=== PATIENT | male | born 1945 | race Hispanic/Latino ===

== ENCOUNTER 2018-11-07 06:39 | Inpatient (IN) ==
[2018-11-01 15:43] LABS: HEMATOCRIT 37.2 % (42.0-52.0); HEMOGLOBIN 11.8 g/dL (14.0-18.0); MCH 29.1 PG (27-31); MCHC 31.7 g/dL (33-37); MCV 91.9 FL (81-99); MPV 10.4 FL (7.4-10.4); RBC 4.05 XMIL (4.7-6.1); RDW 13.1 % (11.5-14.5); WBC 5.58 X1000 (4.8-10.8)
[2018-11-01 15:46] LABS: CALCIUM 9.1 mg/dL (8.8-10.2); CREATININE 1.3 mg/dL (0.7-1.2); POTASSIUM 3.9 mmol/L (3.5-5.1)
[2018-11-07] MEDS ORDERED: LR 1,000 ML ONE (07:06)
[2018-11-07] MEDS ORDERED: KEFZOL 1 GM/D5W 1 GM/50 ML IVPB ONE (07:06)
[2018-11-07] MEDS ORDERED: DIPRIVAN 1% ONE (07:23)
[2018-11-07] MEDS ORDERED: XYLOCAINE-MPF 2% ONE (07:24)
[2018-11-07] MEDS ORDERED: LOPRESSOR ONE (07:27)
[2018-11-07] MEDS ORDERED: FENTANYL ONE (08:49)
[2018-11-07] MEDS ORDERED: NEO-SYNEPHRINE ONE (09:10)
[2018-11-07] MEDS ORDERED: SODIUM CHLORIDE 0.9% 10 ML ONE (09:10)
[2018-11-07] MEDS ORDERED: NS 1,000 ML ONE (09:52)
[2018-11-07] MEDS: DILAUDID ONE ×5 (09:52→10:25)
--- NOTE | 2018-11-07 10:01 | OPERATIVE NOTE ---
PROCEDURE DATE: 11/07/2018 PROCEDURE PERFORMED: Right below-knee amputation. SURGEON: Dr. Cem Mercedes. MAGAZINE SUPERVISOR: ASHA Silva. PREOPERATIVE DIAGNOSIS: Ischemic gangrene of the right foot. POSTOPERATIVE DIAGNOSIS: Ischemic gangrene of the right foot. DESCRIPTION OF PROCEDURE: After satisfactory general anesthesia was achieved, the right leg was prepped and draped in a sterile fashion. The foot was excluded. We made a curvilinear susie anteriorly 4 fingerbreadths below the tibial tubercle. We then measured 15 cm below that and made a transverse susie inferiorly. So, we made a long posterior flap susie. We then incised the skin in the area that was marked for the circumference of the excision. We achieved satisfactory hemostasis with electrocautery. There was much edema fluid in the subcutaneous tissue. We dissected through the anterior muscle group with the electrocautery down to the tibial vessels. We clamped and divided them and suture ligated them with 2-0 silk suture ligatures. The vein graft was occluded. We passed a Alisa behind the tibia. Passed a Gigli saw and transected the tibia tapering it anteriorly. We then went a centimeter above that on the fibula and transected it. We put a hook into the tibia, used a guillotine knife to slide behind both bones down to the distal end of our posterior dissection and then transected muscle there. We handed off the lower leg and foot. We clamped off the bleeding vessels, suture ligated them with 3-0 Polysorb suture ligatures. We ligated the tibial nerve proximally and transected it. We then filed the end of the tibia with a file to smooth it. We then copiously irrigated the muscle flap. Hemostasis was satisfactory. We then folded the muscle flap forward and approximated the muscle groups with 0 Polysorb stitches. Subcutaneous tissue was then reapproximated with 3-0 Polysorb stitches and the skin was approximated with milagros. Xeroform, sterile 4 x 4s, and sterile Kerlix was applied and then a 6-inch OCL splint was placed to keep the knee straight and then this was wrapped with 6- inch Keaton. He tolerated it well. Estimated blood loss was about 200 mL. He was sent to the recovery room in satisfactory condition. cc: Cem Mercedes MD
[2018-11-07] MEDS: APRESOLINE ONE ×2 (10:40→11:10)
[2018-11-07] MEDS: NS 1,000 ML IV SCH (13:15)
[2018-11-07] MEDS: ZOFRAN IV PRN (13:49)
[2018-11-07] MEDS: NORCO-10 PO PRN ×2 (15:31→21:00)
[2018-11-07] MEDS: NEURONTIN PO SCH (20:59)
[2018-11-07] MEDS: LOPRESSOR PO SCH (21:00)
[2018-11-07] MEDS: LIPITOR PO SCH (21:00)
[2018-11-08] MEDS: ZOFRAN IV PRN (02:15)
[2018-11-08] MEDS: DILAUDID IV PRN ×2 (02:15→21:48)
[2018-11-08] MEDS: NORCO-10 PO PRN ×3 (03:18→18:40)
[2018-11-08 06:18] LABS: BASO# 0.02 X1000 (0.0-0.2); BASO% 0.3 % (0.0-0.8); EOS# 0.07 X1000 (0.0-0.7); HEMATOCRIT 31.8 % (42.0-52.0); HEMOGLOBIN 9.9 g/dL (14.0-18.0); LYMPH# 1.22 X1000 (1.2-3.4); LYMPH% 17.7 % (20.5-51.1); MCHC 31.1 g/dL (33-37); MCV 93.3 FL (81-99); MONO# 0.58 X1000 (0.11-0.59); MONO% 8.4 % (1.7-9.3); MPV 10.9 FL (7.4-10.4); NEUT# 5.01 X1000 (1.4-6.5); NEUT% 72.6 % (42.2-75.2); PLT 195 X1000 (130-400); RBC 3.41 XMIL (4.7-6.1); RDW 13.7 % (11.5-14.5)
[2018-11-08 06:30] LABS: AGAP 10; BUN 17 mg/dL (8-22); CALCIUM 8.1 mg/dL (8.8-10.2); CHLORIDE 104 mmol/L (98-107); COSMO 283; ESTIMATED GFR > 60; GLUCOSE 165 mg/dL (70-104); SODIUM 139 mmol/L (136-145); TCO2 25 mmol/L (25-35)
[2018-11-08] MEDS: NS 1,000 ML IV SCH ×2 (06:31→21:52)
[2018-11-08] MEDS: ASPIRIN PO SCH (09:21)
[2018-11-08] MEDS: JANUVIA PO SCH (09:21)
[2018-11-08] MEDS: LOPRESSOR PO SCH ×2 (09:21→21:48)
--- NOTE | 2018-11-08 13:45 | GENERAL SURGERY PROGRESS NOTE ---
DATE: 11/08/2018 SUBJECTIVE: Mr. Mehta is doing generally well. OBJECTIVE: Vital signs: He is afebrile, heart rate 76, blood pressure 128/68. General: His bandage is dry and intact. DIAGNOSTIC DATA: White count 6900, hemoglobin 9.9, hematocrit 31.8. Chemistry is okay. PLAN: The plan will be to leave his wrap and splint on for today. We will advance his diet. cc: Cem Mercedes MD
--- NOTE | 2018-11-08 13:47 | GENERAL SURGERY PROGRESS NOTE ---
DATE: 11/08/2018 DATE AND TIME: 11/08/2018 at 12:55 p.m. PROGRESS NOTE: Mr. Mehta is doing generally well. His bandage is intact. His pain relief appears adequate. He is afebrile. Blood pressure 128/68. The plan will be to advance his diet. We will probably unwrap his stump tomorrow. cc: Cem Mercedes MD
[2018-11-08] MEDS: LIPITOR PO SCH (21:42)
[2018-11-08] MEDS: NEURONTIN PO SCH (21:43)
[2018-11-09] MEDS: NORCO-10 PO PRN ×4 (02:53→22:26)
[2018-11-09] MEDS: ASPIRIN PO SCH (08:24)
[2018-11-09] MEDS: LOPRESSOR PO SCH ×2 (08:24→22:26)
[2018-11-09] MEDS: JANUVIA PO SCH (08:24)
[2018-11-09] MEDS: PERIDEX MT SCH ×2 (08:25→22:26)
--- NOTE | 2018-11-09 14:55 | GENERAL SURGERY PROGRESS NOTE ---
DATE: 11/09/2018 TIME: 1:55 p.m. Mr. Mehta's stump was inspected and looks good. Healing satisfactorily. We will rewrap it. I talked with physical therapy and they did get him up today. They will work with him over the weekend and will be planning for discharge on Monday to his house with home health if needed. cc: Cem Mercedes MD
[2018-11-09] MEDS: NEURONTIN PO SCH (22:26)
[2018-11-09] MEDS: LIPITOR PO SCH (22:26)
--- NOTE | 2018-11-10 07:15 | GENERAL SURGERY PROGRESS NOTE ---
DATE: 11/10/2018 SUBJECTIVE: The patient seems to be doing okay. No major issues. OBJECTIVE: Vital Signs: The patient is currently afebrile. His vital signs are stable. General: No acute distress. Cardiovascular: Regular rate and rhythm. Lungs grossly clear. Amputation site seems to be healing with dressing in place. ASSESSMENT AND PLAN: A 72-year-old gentleman status post right [id number] amputation. Postoperative state. At this time, we will continue to monitor him. Continue current treatment. We will plan on potential discharge on Monday. cc: MD Cem Dill MD
[2018-11-10] MEDS: NORCO-10 PO PRN ×3 (07:37→21:57)
[2018-11-10] MEDS: NS 1,000 ML IV SCH (07:37)
[2018-11-10] MEDS: ASPIRIN PO SCH (10:47)
[2018-11-10] MEDS: JANUVIA PO SCH (10:47)
[2018-11-10] MEDS: LOPRESSOR PO SCH ×2 (10:47→21:57)
[2018-11-10] MEDS: PERIDEX MT SCH ×2 (10:47→21:57)
[2018-11-10] MEDS: LIPITOR PO SCH (21:57)
[2018-11-10] MEDS: NEURONTIN PO SCH (21:57)
--- NOTE | 2018-11-11 07:07 | GENERAL SURGERY PROGRESS NOTE ---
DATE: 11/11/2018 Reviewed notes. No major issues per nursing staff. Patient seems to be sleeping well. Amputation site with dressing in place. We will still hold and plan for discharge on Monday. cc: MD Cem Dill MD
[2018-11-11] MEDS: JANUVIA PO SCH (09:36)
[2018-11-11] MEDS: NORCO-10 PO PRN ×2 (09:36→22:35)
[2018-11-11] MEDS: PERIDEX MT SCH ×2 (09:36→22:35)
[2018-11-11] MEDS: ASPIRIN PO SCH (09:36)
[2018-11-11] MEDS: LOPRESSOR PO SCH ×2 (09:36→22:35)
[2018-11-11] MEDS: NS 1,000 ML IV SCH (17:18)
[2018-11-11] MEDS: NEURONTIN PO SCH (22:35)
[2018-11-11] MEDS: LIPITOR PO SCH (22:35)
[2018-11-12] MEDS: PERIDEX MT SCH ×2 (08:42→22:37)
[2018-11-12] MEDS: LOPRESSOR PO SCH ×2 (08:42→22:36)
[2018-11-12] MEDS: JANUVIA PO SCH (08:42)
[2018-11-12] MEDS: ASPIRIN PO SCH (08:42)
[2018-11-12] MEDS: NS 1,000 ML IV SCH ×3 (08:47→08:48)
[2018-11-12] MEDS: NORCO-10 PO PRN (16:39)
[2018-11-12] MEDS: LIPITOR PO SCH (22:36)
[2018-11-12] MEDS: NEURONTIN PO SCH (22:36)
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
[2018-11-13] MEDS: NS 1,000 ML IV SCH ×3 (01:30→18:38)
[2018-11-13] MEDS: JANUVIA PO SCH (08:58)
[2018-11-13] MEDS: PERIDEX MT SCH ×2 (08:58→20:34)
[2018-11-13] MEDS: ASPIRIN PO SCH (08:58)
[2018-11-13] MEDS: LOPRESSOR PO SCH ×2 (08:58→20:34)
--- NOTE | 2018-11-13 13:59 | GENERAL SURGERY PROGRESS NOTE ---
DATE: 11/13/2018 TIME SEEN: 12:15 p.m. SUBJECTIVE: Mr. Mehta was doing generally well. He was afebrile. Hemodynamics are good. His stump looks good. They have decided to go to [facility], and so the social organization professor has communicated with the daughter, and they are making plans to seek a referral to [facility]. Otherwise he has no complaints. cc: Cem Mercedes MD
[2018-11-13] MEDS: NORCO-10 PO PRN ×2 (15:01→20:34)
[2018-11-13] MEDS: LIPITOR PO SCH (20:34)
[2018-11-13] MEDS: NEURONTIN PO SCH (20:34)
[2018-11-14] MEDS: NORCO-10 PO PRN (04:06)
[2018-11-14] MEDS: JANUVIA PO SCH (08:42)
[2018-11-14] MEDS: ASPIRIN PO SCH (08:42)
[2018-11-14] MEDS: LOPRESSOR PO SCH (08:43)
[2018-11-14] MEDS: PERIDEX MT SCH (08:43)
[2018-11-14 11:30] VITALS: BP 148/84
--- NOTE | 2018-11-14 12:54 | DISCHARGE SUMMARY ---
ADMISSION DATE: 11/07/2018 DISCHARGE DATE: 11/14/2018 PRIMARY DISCHARGE DIAGNOSIS: Ischemic gangrene of the right foot. PRIMARY PROCEDURE: Right below-knee amputation. HISTORY: A 72-year-old who had a failed bypass procedure and now presents for below-knee amputation. His medical history is pertinent for type 2 diabetes, hypertension, and atrial fibrillation. HOSPITAL COURSE: Following his admission on the , he underwent the procedure. Postoperatively, he did generally well. We unwrapped his stump on the second postoperative day and looked at his wound, and it was satisfactory. We left his splint off subsequent to that. He was put back on his usual medications. His pain was controlled satisfactory. We got physical therapy to see him and we did stand him up. He has decided to go to rehab. He will resume his usual home medications. Return to see me in the office in 2 weeks for staple removal. cc: Cem Mercedes MD
== END 2018-11-14 13:25 | DRG 240 ==
LOC: SURHOLD 06:39 → 4N 11:27
PROVIDERS: ADMIT Surgery; ATTEND Surgery
CPT/HCPCS: 80048; 82948; 85025; 85027; 88307; 94761; 94799; 97110; 97162; 97530; A9270; J0360; J0690; J1170; J2370; J2405; J3010; J7030; J7120; XXXXX

== ENCOUNTER 2019-09-18 15:17 | Inpatient (IN) ==
[2019-09-18 16:04] LABS: BASO# 0.03 X1000 (0.0-0.2); BASO% 0.4 % (0.0-0.8); EOS# 0.05 X1000 (0.0-0.7); EOS% 0.7 % (0.0-10.0); HEMATOCRIT 41.1 % (42.0-52.0); HEMOGLOBIN 13.4 g/dL (14.0-18.0); LYMPH# 1.36 X1000 (1.2-3.4); LYMPH% 20.1 % (20.5-51.1); MCH 28.1 PG (27-31); MCHC 32.6 g/dL (33-37); MCV 86.2 FL (81-99); MONO# 0.49 X1000 (0.11-0.59); MONO% 7.3 % (1.7-9.3); MPV 10.9 FL (7.4-10.4); NEUT# 4.82 X1000 (1.4-6.5); NEUT% 71.5 % (42.2-75.2); PLT 271 X1000 (130-400); RBC 4.77 XMIL (4.7-6.1); RDW 14.8 % (11.5-14.5); WBC 6.75 X1000 (4.8-10.8)
[2019-09-18 16:14] LABS: INR 1.18; PROTIME 15.2 Seconds (11.0-16.0)
[2019-09-18 16:15] LABS: PTT 29.8 Seconds (22.3-41.8)
--- NOTE | 2019-09-18 16:15 | Diag Imaging Result Doc PS360 ---
EXAM: CHEST-1 VIEW INDICATION: SOB TECHNIQUE: One view COMPARISON: 07/04/2019 FINDINGS: There is a moderate to large size pleural effusion at the right lung base that has increased in size somewhat during the interval. There is adjacent right basilar atelectasis. There is pulmonary venous congestion and interstitial edema similar to the previous study. No pneumothorax is appreciated. The cardiac silhouette is stable. IMPRESSION: Pulmonary edema similar to the previous study but an increase in the right pleural effusion. Electronically signed by Blake Matthews 09/18/2019 4:13 PM
[2019-09-18 16:16] LABS: ALB/GLOB RATIO 1.2; ALBUMIN 3.6 g/dL (3.5-5.0); CALCIUM 9.3 mg/dL (8.8-10.2); CREATININE 2.1 mg/dL (0.7-1.2); POTASSIUM 4.2 mmol/L (3.5-5.1); TOTAL BILIRUBIN 0.43 mg/dL (0.20-1.00); TOTAL PROTEIN 6.6 g/dL (6.3-8.3)
--- NOTE | 2019-09-18 16:49 | EKG Report ---
Test Performed on : 09/18/2019 3:36:14 PM Test Reason : ED. NO EKG ORDER FOR MUSE Blood Pressure : / mmHG Vent. Rate : 093 BPM Atrial Rate : 078 BPM P-R Int : 000 ms QRS Dur : 086 ms QT Int : 370 ms P-R-T Axes : 000 005 108 degrees QTc Int : 460 ms Atrial fibrillation. Anteroseptal infarct (cited on or before 05-AUG-2018) Abnormal ECG When compared with ECG of 02-JUL-2019 20:34, Questionable change in QRS axis Nonspecific T wave abnormality no longer evident in Inferior leads Unconfirmed Result
--- NOTE | 2019-09-18 19:00 | ED EKG INTERP ---
This chart was entered by Kecia Dickinson Scribe, acting as scribe for Denilson Fuller MD. EKG Interpretation - EKG Time of EKG reading by physician:: 16:32 EKG Read and Signed by:: Denilson Fuller EKG Interpretation (*Must complete 3 of following elements*): Abnormal (afib rate controlled OAWMI artifact present) Rate: 93 Rhythm: afib [place]: normal Attestation - Physician/ BEATA Attestation The physician spent face to face time with patient:: No Advanced Practice Provider documentation review:: Supervising physician onsite and consulted in the evaluation and care of this patient. The physician did not have a face to face encounter with the patient. This chart was documented by the indicated scribe, (Kecia Dickinson Scribe) and accurately reflects the services I performed and decisions made by , Denilson Fuller MD, as attested by the provider's signature.
[2019-09-18] MEDS ORDERED: SOLU-MEDROL IV ONE (20:22)
[2019-09-18] MEDS ORDERED: DUONEB (A & A) INH ONE (20:22)
[2019-09-18] MEDS ORDERED: NS 1,000 ML IV ONE (20:22)
[2019-09-18] MEDS ORDERED: NS 500 ML IV ONE (20:24)
[2019-09-18] MEDS ORDERED: NS 500 ML ONE (20:31)
[2019-09-18] MEDS ORDERED: LASIX IV ONE (21:40)
--- NOTE | 2019-09-18 21:55 | PROVIDER DOCUMENTATION ---
This chart was entered by Kecia Dickinson Scribe, acting as scribe for Walter Thao MD. HPI-General Adult - General Chief Complaint: Shortness of Breath Stated Complaint: SOB Time Seen by Provider: 09/18/19 19:15 Source: patient Allergies/Adverse Reactions: Patient Allergies Allergy/AdvReac Type Severity Reaction Status Date / Time No Known Allergies Allergy Verified 09/18/19 21:12 Home Medications: Home Medication List Medication Instructions Recorded Confirmed Last Taken Type NK [No Home Medications] 09/18/19 09/18/19 Unknown History - History of Present Illness -Gen Adult Nature of Presenting Problems: pt is a 73 yr old male presenting with 4 day complaint of shortness of breath, cough and nasal congestion. pt also admits low abdominal pain and increased urination. pt reports he was admitted to [facility] 2 months ago for CHF exacerbation. Location of Pain/Injury: reports: abdomen. denies: chest Pain Radiation: reports: no radiation Quality of Pain: reports: pressure Severity: reports: moderate Onset/Duration: reports: 4 days ago Timing: reports: still present Context/Activities at Onset: reports: light activity Modifying Factors: improves with: nothing Associated Symptoms: reports: genitourinary problems, sinus congestion/drainage, shortness of breath. denies: back/neck pain, chest pain, EENT symptoms, fever/chills, pain with inspiration Similar Symptoms Previously?: No Recently seen or treated by another doctor?: No Review of Systems - Adult - REVIEW OF SYSTEMS - ADULT Constitutional: denies: chills, fever Eyes: reports: no symptoms reported Ears, Nose, Mouth & Throat: reports: no symptoms reported Cardiovascular: denies: chest pain, palpitations, syncope Respiratory: reports: cough, shortness of breath. denies: dyspnea on exertion Gastrointestinal: reports: abdominal pain. denies: diarrhea, nausea, vomiting Genitourinary: reports: urgency. denies: dysuria Musculoskeletal: reports: no symptoms reported Integumentary: reports: no symptoms reported Neurological: denies: dizziness/vertigo, headache/migraines, syncope Psychiatric: reports: no symptoms reported Endocrine: reports: polyuria Hematologic/Lymphatic: reports: no symptoms reported Allergic/Immunologic: reports: no symptoms reported All Other Systems: Reviewed and Negative Past History - Adult - PAST MEDICAL HISTORY-ADULT Review of Records: reports: Old Records Reviewed, Nursing Assessment Review, Medications Reviewed, Social history reviewed & non-contributory. Major Childhood Illnesses: reports: denies history Cardiovascular: reports: CHF Respiratory: reports: COPD Gastrointestinal: reports: denies history Obstetrical/Gynecological: reports: denies history Genitourinary: reports: denies history Musculoskeletal: reports: denies history Neurological: reports: denies history Endocrine/Immune: reports: denies history Other Conditions: reports: denies history - PRIOR SURGERIES/PROCEDURES Surgical/Procedure History: reports: orthopedic (extremity) - IMMUNIZATION STATUS Childhood Immunizations: See Nurse Assessment Flu Vaccine: See Nurse Assessment - FAMILY HISTORY Family History: reviewed, not pertinent - SOCIAL HISTORY Smoking: non-smoker Substance Use: denies Living Situation: family Physical Exam-General - PHYSICAL EXAM-ADULT Initial Vital Signs Reviewed: Yes - CONSTITUTIONAL General Appearance: alert, no apparent distress - EYES Eyes: PERRL/EOMI - HEAD, EARS, NOSE, MOUTH & THROAT HENMT: normocephalic/atraumatic, moist mucous membranes, normal ENT inspection - NECK Neck: non-tender, full range of motion, supple, normal inspection - RESPIRATORY Respiratory: chest non-tender, no pleuratic chest pain, no respiratory distress, no accessory muscle use, crackles, increased rate (26) - CARDIOVASCULAR Cardiovascular: normal peripheral pulses, regular rate, rhythm - GASTROINTESTINAL (ABDOMEN) Abdominal Exam: normal bowel sounds, non tender, soft - LYMPHATIC Lymphatic: no adenopathy - MUSCULOSKELETAL Back Exam: normal inspection, no CVA tenderness, no vertebral tenderness Extremity: normal range of motion, non-tender, other (RBKA) - SKIN Integumentary: normal color, normal turgor, warm/dry - NEUROLOGIC Neurologic: grossly normal, no motor/sensory deficits - PSYCHIATRIC Psych/Mental Status: normal mood/affect Progress - PLAN OF CARE/RESULTS Progress/Plan/Lab Results: Vital Signs - 8 hr 09/18/19 15:27 Temperature 98.4 F Pulse Rate 98 H Respiratory Rate 20 Blood Pressure 184/95 O2 Sat by Pulse Oximetry 94 L Laboratory Results - last 24 hr 09/18/19 09/18/19 09/18/19 15:40 15:40 15:40 WBC 6.75 RBC 4.77 Hgb 13.4 L Hct 41.1 L MCV 86.2 MCH 28.1 MCHC 32.6 L RDW Std Deviation 14.8 H Plt Count 271 MPV 10.9 H Immature Gran % (Auto) 0.0 Neut % (Auto) 71.5 Lymph % (Auto) 20.1 L Gila % (Auto) 7.3 Eos % (Auto) 0.7 Baso % (Auto) 0.4 Immature Gran # (Auto) 0.00 Neut # (Auto) 4.82 Lymph # (Auto) 1.36 Gila # (Auto) 0.49 Eos # (Auto) 0.05 Baso # (Auto) 0.03 PT 15.2 INR 1.18 PTT (Actin FS) 29.8 Sodium 139 Potassium 4.2 Chloride 102 Carbon Dioxide 18 L Anion Gap 19 BUN 25 H Creatinine 2.1 H Estimated GFR/1.73 m2 31 BUN/Creatinine Ratio 12 Glucose 367 H Calculated Osmolality 297 Calcium 9.3 Total Bilirubin 0.43 AST 34 ALT 24 Alkaline Phosphatase 128 H Creatine Kinase 76 Troponin T Total Protein 6.6 Albumin 3.6 Globulin 3.0 Albumin/Globulin Ratio 1.2 Plasma Lactate 09/18/19 09/18/19 15:40 15:40 WBC RBC Hgb Hct MCV MCH MCHC RDW Std Deviation Plt Count MPV Immature Gran % (Auto) Neut % (Auto) Lymph % (Auto) Gila % (Auto) Eos % (Auto) Baso % (Auto) Immature Gran # (Auto) Neut # (Auto) Lymph # (Auto) Gila # (Auto) Eos # (Auto) Baso # (Auto) PT INR PTT (Actin FS) Sodium Potassium Chloride Carbon Dioxide Anion Gap BUN Creatinine Estimated GFR/1.73 m2 BUN/Creatinine Ratio Glucose Calculated Osmolality Calcium Total Bilirubin AST ALT Alkaline Phosphatase Creatine Kinase Troponin T < 0.010 Total Protein Albumin Globulin Albumin/Globulin Ratio Plasma Lactate 3.3 H Orders Category Date Time Status Cardiac Monitoring DIRECTED Care 09/18/19 15:32 Active IV Insertion ORDERED Care 09/18/19 15:32 Active Notify MD of + Sepsis Screen NOW Care 09/18/19 15:32 Active Notify Physician As Ordered Care 09/18/19 15:32 Active CHEST-1 VIEW [RAD] Stat Exams 09/18/19 15:32 Completed BLOOD CULTURE [BLDCUL] Stat Lab 09/18/19 15:40 Ordered CBC WITH DIFF [HEME] Stat Lab 09/18/19 15:40 Completed CK PROFILE [SP CHEM] Stat Lab 09/18/19 15:40 Completed COMPREHENSIVE METABOLIC PANEL [CHEM] Stat Lab 09/18/19 15:40 Completed LACTATE, PLASMA [CHEM] Lab 09/18/19 18:45 Uncollected LACTATE, PLASMA [CHEM] Lab 09/18/19 21:45 Uncollected LACTATE, PLASMA [CHEM] Q3H Lab 09/18/19 15:40 Completed PROTIME WITH INR [COAG] Stat Lab 09/18/19 15:40 Completed PTT [COAG] Stat Lab 09/18/19 15:40 Completed TROPONIN T Stat Lab 09/18/19 15:40 Completed URINALYSIS W/POSS RFLX CULT [URINALYSIS] Stat Lab 09/18/19 15:32 Uncollected Oxygen Device Stat Oth 09/18/19 15:32 Active EKG [EKG] Stat Ther 09/18/19 15:36 Draft Result Diagrams: 09/18/19 15:40 09/18/19 15:40 - XRAY 1 XRAY Study: Chest Impression: Abnormal (Signed EXAM: CHEST-1 VIEW INDICATION: SOB TECHNIQUE: One view COMPARISON: 07/04/2019 FINDINGS: There is a moderate to large size pleural effusion at the right lung base that has increased in size somewhat during the interval. There is adjacent right basilar atelectasis. There is pulmonary venous congestion and interstitial edema similar to the previous study. No pneumothorax is appreciated. The cardiac silhouette is stable. IMPRESSION: Pulmonary edema similar to the previous study but an increase in the right pleural effusion. Electronically signed by Blake Matthews 09/18/2019 4:13 PM 09/18/19 1613 Interpreting Physician: Blake Matthews MD Dictated Date/Time: 09/18/19 1611 cc: Denilson Fuller MD; None,PCP) Comparison with other Films: changes noted (07/04/19) Departure - Departure Date of Disposition Decision: 09/18/19 Time of Disposition Decision: 21:55 DIAGNOSIS: Pulmonary edema Qualifiers: Chronicity: acute Qualified Code(s): J81.0 - Acute pulmonary edema Disposition: ADMITTED INPATIENT 09 Certified Medical Emergency: Emergent Condition: Stable Referrals and Follow-Ups: None,PCP [Primary Care Provider] - - Critical Care Note This patient required my direct & personal management of CC.: No Attestation - Physician/ BEATA Attestation Patient care was provided by Advanced Practice Provider:: No The physician spent face to face time with patient:: Yes Advanced Practice Provider documentation review:: Supervising physician onsite and consulted in the evaluation and care of this patient. The physician did have a face to face encounter with the patient. This chart was documented by the indicated scribe, (Kecia Dickinson, Anuj) and accurately reflects the services I performed and decisions made by me, Walter Thao MD, as attested by the provider's signature.
[2019-09-18] MEDS ORDERED: ZOFRAN IV PRN (23:46)
[2019-09-18] MEDS ORDERED: TYLENOL PO PRN (23:46)
[2019-09-19 01:09] LABS: URINE SOURCE CLEAN CATCH
[2019-09-19] MEDS: HEPARIN SUBQ SCH ×3 (01:12→22:02)
[2019-09-19 01:15] LABS: BILIRUBIN URINE NEGATIVE (NEGATIVE); BLOOD URINE LARGE (NEGATIVE); COLOR STRAW; GLUCOSE URINE 300 mg/dL (NEGATIVE); KETONE URINE NEGATIVE (NEGATIVE); LEUKOCYTES URINE NEGATIVE (NEGATIVE); NITRITE URINE NEGATIVE (NEGATIVE); PROTEIN URINE 200 mg/dL (NEGATIVE); TURBIDITY URINE CLEAR (CLEAR); UR EPITHELIAL CELLS <10 /HPF (<10); URINE BACTERIA NEGATIVE /HPF; URINE RBC TNTC /HPF (<10); URINE WBC <10 /HPF (<10); UROBILINOGEN URINE NORMAL (NORMAL)
[2019-09-19 05:02] LABS: BASO# 0.01 X1000 (0.0-0.2); BASO% 0.1 % (0.0-0.8); HEMATOCRIT 41.8 % (42.0-52.0); HEMOGLOBIN 13.6 g/dL (14.0-18.0); LYMPH# 0.79 X1000 (1.2-3.4); LYMPH% 11.6 % (20.5-51.1); MCH 27.9 PG (27-31); MCHC 32.5 g/dL (33-37); MCV 85.8 FL (81-99); MONO# 0.06 X1000 (0.11-0.59); MONO% 0.9 % (1.7-9.3); MPV 10.9 FL (7.4-10.4); NEUT# 5.97 X1000 (1.4-6.5); NEUT% 87.4 % (42.2-75.2); PLT 261 X1000 (130-400); RBC 4.87 XMIL (4.7-6.1); RDW 14.9 % (11.5-14.5); WBC 6.83 X1000 (4.8-10.8)
[2019-09-19 05:43] LABS: CALCIUM 9.3 mg/dL (8.8-10.2); CREATININE 1.8 mg/dL (0.7-1.2); POTASSIUM 4.5 mmol/L (3.5-5.1)
[2019-09-19] MEDS: HUMULIN R SUBQ SCH ×4 (08:01→22:02)
--- NOTE | 2019-09-19 08:50 | HISTORY AND PHYSICAL ---
PRIMARY CARE PHYSICIAN: Dr. Shah. CHIEF COMPLAINT: Shortness of breath x4 days. HISTORY OF PRESENTING ILLNESS: A 73-year-old male with a history of diabetes mellitus type 2, hypertension, chronic atrial fibrillation, who had presented to emergency department with 4 days' history of progressive shortness of breath. The patient stated that he was having difficulty breathing and he could not tolerate, subsequently he presented to emergency department. In the ED he was evaluated. He was found to be in heart failure and due to his presenting symptoms, he will require admission for further management. The patient received diuresis with Lasix in the ED and he had some improvement. At the time of my examination, patient denied any headache, fever, chills, chest pain, hemoptysis, but complained of shortness of breath. PAST MEDICAL HISTORY: Include diabetes mellitus type 2, hypertension, chronic atrial fibrillation not taking his anticoagulant. PAST SURGICAL HISTORY: Right BKA. ALLERGIES: No known drug allergies. CURRENT MEDICATIONS: He does not recall. Nursing staff will reconcile. SOCIAL HISTORY: No history of smoking, alcohol or illicit drug use. FAMILY HISTORY: No history of coronary disease. REVIEW OF SYSTEMS: Fourteen point review of systems is as in HPI. Other systems negative. PHYSICAL EXAMINATION: GENERAL: Cooperative, friendly male. He is resting more comfortably now. VITAL SIGNS: Temperature 98.4 degrees, pulse 98, respirations 20, blood pressure 184/95. HEENT: Atraumatic, normocephalic. Extraocular movements intact. PERRLA. NECK: No masses. CHEST: Basilar rales. CARDIOVASCULAR: Regular rate and rhythm. ABDOMEN: Soft. Positive bowel sounds. EXTREMITIES: There is right BKA. : No bladder distention. SKIN: Warm. LABORATORIES AND STUDIES: WBC 6.75, hemoglobin 13.4, hematocrit 41.1, [place] 271,000[place] [address]. Sodium 139, potassium 4.2, chloride 102, CO2 is 18, BUN is 25, creatinine is 2.1, glucose is 367. Chest x-ray shows pulmonary edema. ASSESSMENT: A 73-year-old male with a history of diabetes mellitus type 2, hypertension, chronic atrial fibrillation, presented to the emergency department with 4 days' history of progressive shortness of breath. He was evaluated in the emergency department, found to be in heart failure and subsequently he will require admission for further management. 1. Acute congestive heart failure exacerbation, unspecified. 2. Diabetes mellitus type 2. 3. Hypertension. 4. Acute kidney injury. PLAN: 1. Will admit patient to PVC. 2. Continue with gentle diuresis with Lasix. 3. Will continue patient on supplemental oxygen. 4. Will consult Cardiology. 5. Will monitor blood glucose and put patient on sliding scale insulin regimen. 6. Monitor blood pressures, resume antihypertensive agents. 7. Will monitor renal function. 8. Will put patient on DVT prophylaxis with heparin. 9. Will continue to follow and reassess, make further recommendations based on patient's clinical course. cc: Vladimir Fry MD
--- NOTE | 2019-09-19 09:38 | EKG Report ---
Test Performed on : 09/19/2019 09:11:42 AM Test Reason : dyspnea Blood Pressure : / mmHG Vent. Rate : 097 BPM Atrial Rate : 113 BPM P-R Int : 000 ms QRS Dur : 088 ms QT Int : 428 ms P-R-T Axes : 000 003 233 degrees QTc Int : 543 ms Atrial fibrillation. with premature ventricular or aberrantly conducted complexes. Septal infarct (cited on or before 05-AUG-2018) ST & T wave abnormality, consider anterolateral ischemia Prolonged QT Abnormal ECG When compared with ECG of 18-SEP-2019 15:36, (Unconfirmed) Nonspecific T wave abnormality now evident in Inferior leads T wave inversion now evident in Anterior leads QT has lengthened Confirmed by Jax LAURENT, Luis ([id number]) on 09/20/2019 11:35:34 AM
[2019-09-19] MEDS ORDERED: LANOXIN IV SCH (12:00)
[2019-09-19] MEDS ORDERED: CARDIZEM PO SCH (14:00)
--- NOTE | 2019-09-19 14:21 | Diag Imaging Result Doc PS360 ---
CT THORAX W/O CONTRAST - 09/19/2019 INDICATION: right pleural effusion/question of malignancy COMPARISON: Chest x-ray 09/18/2015 FINDINGS: There is a moderate right and small left pleural effusion. The effusions are simple fluid density. There is diffuse hazy pulmonary edema. No adenopathy. There is mild cardiomegaly. Upper abdominal images are normal. Airways are clear. There are moderate degenerative changes of the spine. No acute or suspicious bony lesion. IMPRESSION: 1. Cardiomegaly, interstitial pulmonary edema, bilateral pleural effusions right greater than left. 2. No suspicious findings seen. This exam was performed using automated exposure control, adjustment of mA or kV according to patient size, and/or use of iterative reconstruction technique Electronically signed by Chris Joseph 09/19/2019 2:18 PM
[2019-09-19] MEDS ORDERED: ULTRAM PO PRN (15:43)
[2019-09-19] MEDS: LASIX IV SCH (16:48)
--- NOTE | 2019-09-19 20:24 | CARDIOLOGY CONSULTATION ---
DATE: 09/19/2019 CONSULTATION REQUESTED BY: Hospitalist service. REASON: Shortness of breath, irregular heartbeat. SUBJECTIVE: Mr. Mehta is an unfortunate, 73-year-old Iranian gentleman who is known to me. He presented to the ER yesterday at about 3 p.m. with complaints of increasing dyspnea and cough that has been going on for 2 to 3 weeks. According to the son and the patient himself, he was admitted to the hospital on 07/02/2019 through 07/07/2019 at [facility] with similar presentation. At that time, they concluded that the patient had some congestive heart failure and some protein-calorie malnutrition. His chest x-ray at the time of discharge from [facility] was done on 07/04/2019, and it showed findings consistent with CHF. At this time, his chest x-ray shows also a pleural effusion. ProBNP is 22,152, which is higher than the last proBNP checked at [facility] on 07/04/2019. Back then, it was 12,384. Troponins were negative. The patient has not experienced any chest pain or syncope. PAST MEDICAL HISTORY: Positive for: 1. Permanent atrial fibrillation. This has no specific date of onset. He was not aware of having it when I first saw him at my office back in April 2018. 2. He does have hypertension. 3. He has diabetes mellitus type 2. 4. Back in April 2018, we arranged for a test. We did an echocardiogram first on 04/23/2018, that showed ejection fraction of 50 to 55 percent with global impairment. Pulmonary systolic pressure of 44 mmHg. We did a myocardial perfusion stress test on him on May 09, 2018. At that time, he was found in atrial fibrillation. ECG showed no ischemic changes. The perfusion images came back normal. His ejection fraction was 60%. 5. Then the patient ended up in the hospital with issues related to peripheral occlusive arterial disease, and he underwent evaluation by Dr. Mercedes. Eventually, he underwent amputation, right below-knee amputation, in October 2018. Since then, his course has apparently gone downhill. SURGICAL HISTORY: besides right below-knee amputation, includes prostate surgery. SOCIAL HISTORY: He is . He has 8 children. Lives with his daughter. He is not a smoker. He has been retired for a long time. HOME MEDICATIONS: At the time of this admission have not been yet listed. When he left [facility], they had put him on the following list of drugs. He was discharged on: 1. Furosemide 40 daily. 2. Crestor 24-26 daily. 3. Potassium chloride. 4. Metoprolol succinate 25 daily. 5. Metformin 1000 twice a day. 6. Lisinopril 10 daily. 7. Diltiazem 180 daily. REVIEW OF SYSTEMS: Basically, he is very limited now because he is amputated. He is chronically short of breath. He is coughing. His voice is hoarse. FAMILY HISTORY. Non contributory for purposes of this admission. PHYSICAL EXAMINATION: Vital signs: Blood pressure 140/86, pulse 94, respirations 26, temperature is 98.4 degrees. General: He is elderly, appears to be chronically ill, somewhat pale. HEENT: Unremarkable. Chest: Markedly diminished breath sounds at the right base with tubular sounds. Dullness to percussion. Heart: Irregularly irregular, without gallop or murmur. Abdomen: Nontender. Extremities: Evidence of right below-knee amputation with decreased pulses in the left leg. Neurological: Nonfocal. Moves 4 extremities. BLOOD WORK: Includes sodium 139, potassium 4.5, BUN 28, creatinine 1.8. His albumin is 3.6, globulin is 3.0. His hemoglobin is 13.6, hematocrit 41.8, white cell count 6830. IMPRESSION: 1. Patient who presents with what appears to be exacerbation of congestive heart failure with a right pleural effusion. 2. The patient may have acute bronchitis. 3. Chronic kidney disease. 4. Diabetes mellitus type 2. 5. Peripheral occlusive arterial disease, with previous CTA evidence of occlusion of both superficial femoral arteries. 6. Status post right below-knee amputation. 7. Permanent atrial fibrillation. RECOMMENDATIONS: At this time, we will try to optimize his diuresis, his heart rate with digoxin. We will put him on oral diltiazem and we will follow him in the hospital. He is going to be admitted to a regular room hopefully at the end of the day. cc: Brett Lopez MD [facility]
[2019-09-19] MEDS: LANOXIN IV SCH (22:02)
[2019-09-19] MEDS: CARDIZEM PO SCH (22:03)
[2019-09-20] MEDS: CARDIZEM PO SCH ×4 (03:00→20:30)
[2019-09-20] MEDS: LANOXIN IV SCH (03:00)
[2019-09-20] MEDS: HUMULIN R SUBQ SCH ×4 (06:31→20:30)
[2019-09-20] MEDS: HEPARIN SUBQ SCH ×2 (08:12→11:22)
[2019-09-20] MEDS: LASIX IV SCH ×2 (08:12→17:27)
[2019-09-20] MEDS: GLUCOPHAGE PO SCH (08:12)
[2019-09-20 08:17] LABS: CALCIUM 9.2 mg/dL (8.8-10.2); CREATININE 1.8 mg/dL (0.7-1.2); MAGNESIUM 1.9 mg/dL (1.5-2.7); POTASSIUM 4.2 mmol/L (3.5-5.1)
[2019-09-20 08:21] LABS: HEMOGLOBIN A1C 8.7 % (4.8-6.0)
[2019-09-20 08:25] LABS: BASO# 0.02 X1000 (0.0-0.2); BASO% 0.1 % (0.0-0.8); HEMOGLOBIN 13.9 g/dL (14.0-18.0); IMM GRAN# 0.04 X1000 (0.0-0.04); IMM GRAN% 0.2 % (0.0-0.5); LYMPH# 1.54 X1000 (1.2-3.4); LYMPH% 8.6 % (20.5-51.1); MCH 28.3 PG (27-31); MCHC 32.3 g/dL (33-37); MCV 87.6 FL (81-99); MONO# 0.96 X1000 (0.11-0.59); MONO% 5.4 % (1.7-9.3); NEUT# 15.31 X1000 (1.4-6.5); NEUT% 85.7 % (42.2-75.2); PLT 226 X1000 (130-400); RBC 4.91 XMIL (4.7-6.1); WBC 17.87 X1000 (4.8-10.8)
[2019-09-20 08:36] LABS: LYMPHS 8 % (21-51); MONO 5 % (1-9); SEGS 87 % (42-75)
[2019-09-20 08:37] LABS: ANISOCYTOSIS 1+; MICROCYTOSIS 1+
[2019-09-20 08:38] LABS: HYPOCHROM 1+
[2019-09-20] MEDS ORDERED: LASIX IV SCH ×2 (09:00)
--- NOTE | 2019-09-20 20:51 | CARDIOLOGY PROGRESS NOTE ---
DATE: 09/20/2019 CHIEF COMPLAINT: Shortness of breath. SUBJECTIVE: Mr. Mehta had an uneventful night. This morning he is doing better. His rate is better controlled. He is more comfortable. He is not in any pain. Thoracentesis has been scheduled for today. OBJECTIVE: Vital Signs: Blood pressure is 149/74. His pulse is 62 per minute. His respirations are 18 per minute. His temperature is 97.7. General: He is awake, in no distress. Appears to be somewhat pale. HEENT: Unremarkable. Chest: Markedly diminished breath sounds with harsh respirations in the right lung and dullness to percussion there. The left lung is clearer. Cardiovascular: Heart sounds slightly irregular. No gallop or murmur noted. Abdomen: Nontender. Extremities: Show evidence of a right below-knee amputation. Neurologic: He is awake, alert and oriented x3. Moves 4 extremities. LABORATORY DATA: Blood work this morning: White count is 17,870, hemoglobin 13.9. Sodium is 137, potassium 4.2, BUN 41, creatinine 1.8. IMPRESSION: This is a patient who presented with: 1. Decompensated diastolic heart failure. 2. Permanent atrial fibrillation. 3. Right pleural effusion. 4. Bronchitis. 5. Severe peripheral occlusive disease, status post right below-knee amputation. 6. Chronic kidney disease. 7. Diabetes mellitus. RECOMMENDATIONS: At this time I would suggest to continue the present regimen as initiated yesterday with diltiazem and Lasix. Proceed with thoracentesis whenever appropriate. Thank you for asking us to participate in the evaluation of this patient. Will continue to follow with you. cc: Brett Lopez MD
[2019-09-21] MEDS: CARDIZEM PO SCH ×3 (01:25→14:28)
[2019-09-21] MEDS: LASIX IV SCH ×2 (04:18→16:28)
[2019-09-21] MEDS: GLUCOPHAGE PO SCH (06:29)
[2019-09-21] MEDS: HUMULIN R SUBQ SCH ×4 (06:33→21:01)
[2019-09-21 11:58] LABS: CALCIUM 9.3 mg/dL (8.8-10.2); CREATININE 1.7 mg/dL (0.7-1.2)
[2019-09-21] MEDS: COREG PO SCH (20:15)
[2019-09-21] MEDS: ASPIRIN PO SCH (20:15)
[2019-09-21] MEDS: HEPARIN SUBQ SCH (20:16)
[2019-09-21] MEDS: NORVASC PO SCH (20:16)
--- NOTE | 2019-09-21 21:49 | PROGRESS NOTE ---
DATE: 09/21/2019 SUBJECTIVE: No acute events overnight. He is still complaining of some shortness of breath. His heart rate is controlled. He feels more comfortable. This patient speaks Armenian, and when they tried to give him the authorization for the thoracentesis he refused, because he did not know what kind of document he was signing. He will get it next Monday. OBJECTIVE: Vital signs: Temperature 97.8 degrees, pulse 64, respiratory rate 14, blood pressure 166/78, oxygen saturation 98% on 4 L of nasal cannula. HEENT: Head normocephalic, no trauma. PERRLA. Neck supple. He has some mild JVD. Central trachea. Chest: Decreased breath sounds at the bases with crackles, mostly on the right side. His left side is clear except for some crepitus at the bases. Cardiovascular: RRR. Abdomen is soft, nontender, nondistended. No hepatosplenomegaly. Extremities: Right umoqu-rxk-ukwx amputation. Neurological: The patient is awake, alert. He is following commands. Oriented x4. LABORATORY DATA: Pending lab work today. ASSESSMENT AND PLAN: 1. Diastolic heart failure exacerbation. We will continue with diuretics per Cardiology Department. 2. History of atrial fibrillation. He is not on any anticoagulation at this moment, and I do not see any anticoagulation listed on his home medications. He has chronic kidney disease. I will put him on some heparin subcutaneously for now, renally dosed. 3. Right pleural effusion. He has been scheduled for thoracentesis, but likely will be done next Monday. I explained to him the procedure and he agreed to proceed. 4. Permanent atrial fibrillation. As above. 5. Peripheral arterial disease, status post rtbdx-inj-[id number] amputation on the right side. Aware. 6. Chronic kidney disease. Aware. For now we will continue with diuresis. 7. Type 2 diabetes, stable. Getting better compared with admission. I had a conversation with the patient and the daughter at the bedside, apparently he ran out of medications a few days ago, and probably this is why he ended up here in the hospital. I told them that they need to call his doctor a week or 2 weeks before finishing his bottle of medications, so he can have a refill in time. cc: Clint Shaw MD
--- NOTE | 2019-09-22 04:15 | PROGRESS NOTE ---
DATE: 09/21/2019 SUBJECTIVE: The patient denies shortness of breath or chest discomfort on supplemental oxygen. OBJECTIVE: Vital signs: Blood pressure 170/73, heart rate 72, oxygen saturation 100% on nasal cannula oxygen. Neck: There is no significant jugular venous distention. Chest: Clear to auscultation bilaterally with some diminished breath sounds in the right base. Cardiac: Reveals an irregular rate and rhythm without appreciable murmur, rub, or gallop. There is no evidence of peripheral edema. LABORATORY DATA: From today, includes sodium 131, potassium 4.0, chloride 90, carbon dioxide 27, BUN 42, creatinine 1.7, glucose 216. Last echocardiography study performed 07/04/2019, reported left ventricular ejection fraction of 30% to 35% with mild concentric left ventricular hypertrophy. There was moderate tricuspid regurgitation with estimated PA pressure of 41 mmHg. There was moderate mitral regurgitation. There is mild aortic regurgitation. Right ventricle was not felt to be dilated. IMPRESSION: 1. Acute on chronic congestive heart failure. 2. Permanent atrial fibrillation. 3. Right pleural effusion. 4. Peripheral artery disease. Patient is status post right jfsfo-rew-[id number] amputation. 5. Chronic kidney disease. 6. Diabetes mellitus. RECOMMENDATIONS: 1. Continue diuresis gently. 2. Given depressed left ventricular systolic function, transition towards incorporating beta josefina and medical regimen. cc: Rodríguez Cleveland MD
[2019-09-22] MEDS: COREG PO SCH ×3 (04:50→20:45)
[2019-09-22 05:48] LABS: HEMATOCRIT 42.1 % (42.0-52.0); HEMOGLOBIN 13.8 g/dL (14.0-18.0); MCH 28.8 PG (27-31); MCHC 32.8 g/dL (33-37); MCV 87.9 FL (81-99); MPV 10.9 FL (7.4-10.4); RBC 4.79 XMIL (4.7-6.1); RDW 14.3 % (11.5-14.5); WBC 7.47 X1000 (4.8-10.8)
[2019-09-22] MEDS: GLUCOPHAGE PO SCH (06:16)
[2019-09-22] MEDS: HUMULIN R SUBQ SCH ×4 (06:16→20:45)
[2019-09-22 06:23] LABS: ALBUMIN 2.8 g/dL (3.5-5.0); CALCIUM 9.2 mg/dL (8.8-10.2); CREATININE 1.8 mg/dL (0.7-1.2); MAGNESIUM 1.9 mg/dL (1.5-2.7); POTASSIUM 3.8 mmol/L (3.5-5.1); TOTAL BILIRUBIN 0.43 mg/dL (0.20-1.00); TOTAL PROTEIN 5.7 g/dL (6.3-8.3)
--- NOTE | 2019-09-22 08:08 | Diag Imaging Result Doc PS360 ---
EXAM: CHEST-PORTABLE - 09/22/2019 HISTORY: dyspnea TECHNIQUE: Portable chest COMPARISON: 09/18/2019 FINDINGS: There is been mild increase in infiltrate, edema, and/or pleural fluid on the right. There is been interval decrease in infiltrate or edema on the left. There is no evidence of pneumothorax. There is mild cardiomegaly. IMPRESSION: Mild increase in infiltrate, edema, and/or pleural fluid on the right. Decrease in infiltrate or edema on the left. Electronically signed by Rodríguez Maria 09/22/2019 8:06 AM
[2019-09-22] MEDS: NORVASC PO SCH (10:07)
[2019-09-22] MEDS: ASPIRIN PO SCH (10:09)
[2019-09-22] MEDS: LASIX IV SCH (10:10)
[2019-09-22] MEDS: HEPARIN SUBQ SCH ×2 (10:10→20:30)
--- NOTE | 2019-09-22 10:26 | PROGRESS NOTE ---
DATE: 09/22/2019 SUBJECTIVE: No acute events overnight. He is eating by himself at this moment and he is tolerating food really well. He is feeling better. His proBNP improved significantly. I discussed with him and tomorrow, hopefully, he will have a right-sided thoracentesis done. We will continue with same management. Cardiology on board. OBJECTIVE: Vital Signs: Temperature 98.2 degrees, pulse 97, respiratory rate 16, blood pressure 161/67, oxygen saturation 100% on 3 L of nasal cannula. HEENT: Head normocephalic, no trauma. PERRLA. Neck: Supple. Mild JVD. Central trachea. Chest: Decreased breath sounds at the right base with some crackles. Abdomen: Soft, nontender, nondistended. No hepatosplenomegaly. Extremities: Right bdkwa-juz-arhr amputation. Neurological: This patient is awake, alert. He is following commands. He is oriented. LABORATORY DATA: WBC 7.4, hemoglobin 13.8, hematocrit 42.1, platelets 230,000. Sodium 139, potassium 3.8, chloride 98, bicarbonate 28, BUN 38, creatinine 1.8, glucose 187, calcium 9.2. ProBNP 5635, albumin 2.8. ASSESSMENT AND PLAN: 1. Diastolic heart failure exacerbation. Continue with diuretics per Cardiology Department. He seems to be getting better. ProBNP significantly improved. 2. History of atrial fibrillation. I do not see any long-term anticoagulation listed on his medications. I have placed this patient on heparin twice a day, renally dosed, which I will hold due to his possible thoracentesis tomorrow. 3. Right pleural effusion. I requested a thoracentesis on the right side tomorrow. 4. Permanent atrial fibrillation, as above. 5. Peripheral arterial disease, status post right ublie-ove-hdcc amputation, aware. 6. Chronic kidney disease. For now, we will continue with diuresis. This is his baseline. 7. Type 2 diabetes, stable, better compared with admission. 8. Medical noncompliance. Apparently this patient ran out of his medications and he was not able to get it back on time. cc: Clint Shaw MD
[2019-09-23] MEDS: HUMULIN R SUBQ SCH ×4 (06:46→23:17)
[2019-09-23] MEDS: COREG PO SCH ×3 (06:49→20:19)
[2019-09-23] MEDS: GLUCOPHAGE PO SCH (06:49)
[2019-09-23 07:55] LABS: CALCIUM 9.2 mg/dL (8.8-10.2); CREATININE 1.7 mg/dL (0.7-1.2); INR 1.05; POTASSIUM 4.1 mmol/L (3.5-5.1); PROTIME 13.9 Seconds (11.0-16.0)
[2019-09-23 07:56] LABS: PTT 30.6 Seconds (22.3-41.8)
[2019-09-23] MEDS: ASPIRIN PO SCH (08:16)
[2019-09-23] MEDS: NORVASC PO SCH (08:17)
[2019-09-23] MEDS: LASIX IV SCH (08:17)
--- NOTE | 2019-09-23 10:48 | PROGRESS NOTE ---
DATE: 09/23/2019 SUBJECTIVE: Today Mr. Mehta refers to be doing a little better. He is still on supplemental oxygen which he never used before. Mr. Mehta is day 4 in hospital and presented because of shortness of breath. He is being treated for congestive heart failure with preserved ejection fraction. This morning, he feels a lot better. OBJECTIVE: Vital signs: Blood pressure is 162/60, pulse of 81, respirations 20, temperature is 98.1 degrees. The patient is saturating 100% on 4 L. General: Mr. Mehta is a 73-year-old gentleman. He is in bed. He is still on supplemental nasal cannula oxygenation. HEENT: Mucosa is pink and moist. Anicteric. Acyanotic. Neck: Supple. No JVD. No carotid bruit. Cardiovascular: Irregularly irregular, but rate controlled. No murmurs, no rubs. Chest: Air entry was bilaterally reduced, more so to the right posterior lung whitt. Crackles posteriorly. Abdomen: Soft, nontender. There are bilateral mild inguinal hernias. Extremities: There is a right BKA. Left lower extremity pulses are almost imperceptible. Central nervous system: Patient is awake, alert and oriented. LABORATORY DATA: No CBC today. Chemistry has also been reviewed. Sodium is 135. Patient's creatinine is 1.7, which seems to be his baseline. CURRENT MEDICATIONS: 1. Amlodipine 2.5 daily. 2. Aspirin 81 mg p.o. daily. 3. Coreg 6.25 b.i.d. 4. Lasix 60 mg IV daily. 5. Metformin 1000 mg p.o. before meals and at bedtime. 6. Tramadol. A1c of 8.7. ASSESSMENT: 1. Acute hypoxemic respiratory failure secondary to bilateral pulmonary edema. The patient continues to be on supplemental oxygen. He is being weaned off. 2. Congestive heart failure with preserved ejection fraction in exacerbation. The patient continues to be on intravenous diuretic therapy. I think he is now okay to be transitioned to oral. 3. Bilateral pleural effusion, right more than left. I think this is all secondary to the congestive heart failure. We are going to do at bedside ultrasound-guided right thoracentesis to alleviate some of his oxygen demands. 4. Permanent atrial fibrillation, currently rate controlled. 5. History of peripheral vascular disease, status post right below-knee amputation. 6. Chronic kidney disease, stage III-B. 7. Diabetes mellitus with presenting A1c of 8.7. The patient is currently on metformin. I am going to discontinue this because he is hospitalized and two because of his abnormal renal function test. We will not use insulin for glucose control. 8. Medical noncompliance addressed. cc: Devon Cortez MD
--- NOTE | 2019-09-23 11:24 | CARDIOLOGY PROGRESS NOTE ---
DATE: 09/23/2019 CHIEF COMPLAINT: Shortness of breath. SUBJECTIVE: Mr. Mehta is feeling better. Today, he is scheduled to go for thoracentesis. He has felt better for the past couple of days. Breathing is more comfortable. No pains. He is lying in bed comfortably. OBJECTIVE: Vital Signs: Blood pressure 162/60, temperature 98.1, pulse 81, respirations 20. General: He is awake, alert, and oriented, in no distress. HEENT: Unremarkable. Chest: Diminished breath sounds at the right lung. Cardiovascular: Heart sounds are irregularly irregular. Abdomen: Nontender. Extremities: Show evidence of a right below-knee amputation. Neurologic: Follows commands. Moves four extremities. LABORATORY DATA: Blood work today: Glucose is 134. IMPRESSION: This is a patient who has: 1. Permanent atrial fibrillation. 2. Diastolic heart failure. 3. Right pleural effusion, symptomatic. 4. Chronic kidney disease. 5. Diabetes mellitus, type 2. 6. Severe peripheral occlusive arterial disease, status post right below-knee amputation. RECOMMENDATIONS: Today, the patient will go for the aforementioned thoracentesis. We will continue present therapy to control his heart rate with beta-blockers. We may have to add low- dose digoxin to optimize the control of the heart rate. Otherwise, he seems to be progressing well. cc: Brett Lopez MD
[2019-09-23 18:25] LABS: AMYLASE BODY FLUID 38 U/L; GLUCOSE BODY FLUID 196 mg/dL; LDH BODY FLUID 112 U/L; TOTAL PROT BODY FLUID 2.6 g/dL
--- NOTE | 2019-09-23 18:54 | Diag Imaging Result Doc PS360 ---
EXAM: CHEST-PORTABLE 09/23/2019 HISTORY: post thoracentesis TECHNIQUE: Erect AP portable upright chest at 1844 COMMENT: There is opacification of the retrocardiac portion of the left lower lobe with obscuration of the diaphragm and costophrenic angle. The opacity which was previously present on the right has cleared. IMPRESSION: Resolution of the right pleural effusion and basilar atelectasis. Increasing left pleural effusion and atelectasis versus pneumonia left lower lobe. Electronically signed by Jerald Wodoson 09/23/2019 6:52 PM
[2019-09-23 19:18] LABS: BODY FLUID SOURCE PLEURAL FLUID; SPECIMEN PLEURAL FLUID; WBC BF 217 /cumm
[2019-09-23 19:19] LABS: MONOS 74 %; POLYS 26 %
[2019-09-23] MEDS: HEPARIN SUBQ SCH (20:19)
[2019-09-23] MEDS ORDERED: LANTUS INSULIN SUBQ SCH (21:00)
--- NOTE | 2019-09-23 22:17 | OPERATIVE NOTE ---
PROCEDURE DATE: 09/23/2019 PROCEDURE: Right-side thoracentesis. INDICATION: Moderate to large pleural effusion with respiratory compromise. TIME OF PROCEDURE: 1700 hours. PROCEDURE NOTE: Mr. Mehta presents ad a 73-year-old male who presented with shortness of breath, was found to be in congestive heart failure. The chest x-ray did show right pleural effusion, a repeat of this yesterday seems to suggest an increase in the right pleural effusion associated with some shortness of breath. A decision was made for a left-sided thoracentesis, which was also recommended by Cardiology. The procedure, indication, and complications including bleeding, infection, possibility of a pneumothorax were all discussed with Mr. Mehta, and he consented to do the procedure. The daughter was at the bedside. At the beginning of the procedure, ultrasound was used to localize the deepest pocket on the left and also on the right posterior thorax. This was marked posteriorly, the skin was draped in the regular fashion. Chlorhexidine was used as the local antiseptic agent. Lidocaine was used as the local anesthetic. A small niche was made at the site where the susie was already done under the ultrasound, and the area was localized. After the niche, we introduced the thoracentesis trocar on the upper surface of the rib,and gently introduced it under negative pressure until clear pleuritic fluid was obtained. The trocar was advanced, and the needle was removed. Subsequently about 10 mL of clear fior fluid was removed for initial analysis. Subsequently the trocar was attached to the draining system under very low pressure. Over the course of almost 30 minutes 900 mL of clear fior yellowish looking pleural fluid was removed. The patient felt well, did not have any cough, did not have any hemodynamic instability. Vitals were checked after the procedure, and we are waiting on a chest x-ray post procedure. There was very minimal blood loss. The patient has been situated back in his bed. We will follow up on the fluid analysis, and also on the postprocedure x-ray. cc: Devon Cortez MD
[2019-09-24] MEDS ORDERED: INSULIN PEN NEEDLES ONE (06:43)
[2019-09-24] MEDS: HUMULIN R SUBQ SCH ×2 (06:43→11:08)
[2019-09-24] MEDS: COREG PO SCH ×2 (06:43→12:38)
--- NOTE | 2019-09-24 07:00 | Diag Imaging Result Doc PS360 ---
EXAM: CHEST-PORTABLE 09/24/2019 HISTORY: dyspnea TECHNIQUE: AP portable at 0555 COMMENT: There are bilateral lower lobe opacities. This is worse on the right than on the previous study of 09/23/2019. There has been some improvement at the left base however. IMPRESSION: Waxing and waning pulmonary edema and/or pneumonia. Electronically signed by Jerald Woodson 09/24/2019 6:58 AM
[2019-09-24] MEDS: LASIX IV SCH (09:43)
[2019-09-24] MEDS: ASPIRIN PO SCH (09:44)
[2019-09-24] MEDS: NORVASC PO SCH (09:44)
[2019-09-24] MEDS: HEPARIN SUBQ SCH (09:44)
[2019-09-24] MEDS ORDERED: MIRALAX PO ONE (10:33)
[2019-09-24 11:30] VITALS: BP 114/59
[2019-09-25] MEDS ORDERED: LASIX PO SCH (09:00)
[2019-09-25] MEDS ORDERED: TOPROL XL PO SCH (09:00)
[2019-09-25] MEDS ORDERED: CARDIZEM CD PO SCH (09:00)
--- NOTE | 2019-09-25 17:34 | DISCHARGE SUMMARY ---
ADMISSION DATE: 09/19/2019 DISCHARGE DATE: 09/24/2019 CONSULTATION DURING THIS ADMISSION: Cardiology was consulted. Patient was seen by Dr. Lopez, followed up by Dr. Garza. INVASIVE PROCEDURES DONE DURING THIS ADMISSION: Right-sided thoracentesis was done by la, and 900 mL of clear fior to yellowish fluid was removed. IMAGING STUDIES OF SIGNIFICANCE: 1. An initial chest x-ray did show pulmonary edema similar to previous studies, but an increase in the right pleural effusion. 2. A CT scan of the chest shows cardiomegaly, interstitial pulmonary edema, bilateral pleural effusions right greater than left. No suspicious findings. 3. A chest x-ray showed mild increase in infiltrate, edema and/or pleural fluid on the right. A subsequent x-ray, which was done after the thoracentesis, showed resolution of the right pleural effusion and basilar atelectasis. There is a mild increase in the left pleural effusion. 4. A chest x-ray this morning show waxing and waning pulmonary edema and/or pneumonia. ADMISSION DIAGNOSES: 1. Acute congestive heart failure. 2. Diabetes mellitus type 2. 3. Hypertension. 4. Acute kidney injury. DIAGNOSES AT THE TIME OF DISCHARGE: 1. Acute hypoxemic respiratory failure secondary to pulmonary edema with bilateral pleural effusions. 2. Congestive heart failure with preserved ejection fraction. 3. Bilateral pleural effusion, right more than left. The patient was status post right-sided thoracentesis. 4. Permanent atrial fibrillation, currently rate controlled. 5. History of peripheral vascular disease, status post right below-knee amputation. 6. Chronic kidney disease, stage IIIA to B. 7. Diabetes mellitus with presenting A1c of 8.7. 8. Medical noncompliance. DISCHARGE MEDICATIONS: 1. Tramadol 50 mg p.o. p.r.n. 2. Lasix 40 mg p.o. daily. 3. Insulin glargine 10 units subcutaneous daily. 4. Amlodipine 2.5 mg p.o. daily. 5. MiraLAX 17 grams p.o. daily. 6. Metoprolol 50 mg p.o. daily. 7. Aspirin 81 mg p.o. daily. 8. Diltiazem 120 mg p.o. daily. PRESENTING COMPLAINT: Shortness of breath for 4 days. HISTORY OF PRESENTING COMPLAINT: Mr. Mehta is a 73-year-old gentleman who is known to have diabetes mellitus, hypertension, chronic atrial fibrillation, who presented to the emergency department because of shortness of breath. He was evaluated, was found to be in congestive heart failure, was admitted for further medical care. HOSPITAL COURSE: Mr. Mehta was admitted to the medical floor, was started on IV diuretic therapy, and Cardiology was consulted. Throughout the hospital course, he continued to diurese very adequately. Shortness of breath got better, and he was weaned off on the supplemental oxygen. At the time of discharge, he was saturating 98% to 100% on room air. Mr. Mehta was also found to have pulmonary edema, even on CT scan. A right-sided thoracentesis was done by Dr. Cortez on 09/23/2019 where 900 mL of clear fior yellowish pleural fluid was obtained. Fluid analysis was consistent with a transudative process, which we think was related to the congestive heart failure. Postoperatively, Mr. Mehta improved significantly, did not need any more supplemental oxygen. In terms of Mr. Mehta's diabetes mellitus, he was on oral hypoglycemic agents (metformin) prior to hospitalization. However, because of his renal failure, we have decided to start him on insulin, which he has tolerated well. He has been given teaching and resources on insulin therapy. This morning Mr. Mehta refers to be doing a lot better. His current vital signs, blood pressure is 114/59, pulse is 64, respirations 18, temperature is 98.1 degrees. The patient was saturating 98% on room air. We think Mr. Mehta is clinically stable for discharge. He is going to follow up with Dr. Lopez, the vending machine repairer who was involved with his care, as well as his primary care doctor, Dr. Shah. TIME SPENT: The time spent for discharge is 35 minutes. cc: MD Cosme Sheikh MD Luis N. Villanueva, MD MTDD
== END 2019-09-24 17:21 | disposition home or self-care (01) | DRG 291 ==
LOC: ED 15:17 → SUATTDRO 09-19 01:34 → EDIPHOLD 09-19 01:34 → 2N 09-19 14:12 → 3N 09-22 12:09
PROVIDERS: ATTEND Internal Medicine

== ENCOUNTER 2020-01-26 17:03 | Inpatient (IN) ==
[2020-01-26] MEDS ORDERED: VENTOLIN HFA INH ONE (17:10)
[2020-01-26] MEDS ORDERED: LASIX IV ONE ×2 (17:22→18:43)
[2020-01-26] MEDS ORDERED: APRESOLINE IV ONE (17:22)
--- NOTE | 2020-01-26 17:28 | PROVIDER DOCUMENTATION ---
HPI-Respiratory General - General Chief Complaint: Shortness of Breath Stated Complaint: SOB Time Seen by Provider: 01/26/20 17:08 Source: patient Allergies/Adverse Reactions: Patient Allergies Allergy/AdvReac Type Severity Reaction Status Date / Time No Known Allergies Allergy Verified 01/26/20 18:21 Home Medications: Home Medication List Medication Instructions Recorded Confirmed Last Taken Type Aspirin 81 mg PO DAILY #120 chewtab 09/24/19 01/26/20 Unknown Rx Insulin Glargine [Lantus Insulin] 10 unit SUBQ QHS #1 unit 09/24/19 01/26/20 Unknown Rx Carvedilol [Coreg] 6.25 mg PO DAILY 11/29/19 01/26/20 Unknown History Apixaban [Eliquis] 5 mg PO BID 30 Days #60 tab 12/10/19 01/26/20 Unknown Rx Tramadol HCl 50 mg PO Q8H PRN PRN 20 Days #60 12/10/19 01/26/20 Unknown Rx Amlodipine [Norvasc] 5 mg PO DAILY 12/26/19 01/26/20 Unknown History Atorvastatin Calcium [Lipitor] 40 mg PO DAILY 12/26/19 01/26/20 Unknown History Donepezil [Aricept] 5 mg PO DAILY 12/26/19 01/26/20 Unknown History Escitalopram Oxalate [Lexapro] 10 mg PO DAILY 12/26/19 01/26/20 Unknown History Metoprolol Succinate E.r. [Toprol 50 mg PO DAILY 12/26/19 01/26/20 Unknown History Xl] Nitroglycerin [Nitrostat] 0.3 mg SUBLINGUAL PRN PRN 12/26/19 01/26/20 Unknown History Polyethylene Glycol 3350 [Miralax] 17 gm PO DAILY 12/26/19 01/26/20 Unknown History Sacubitril/Valsartan [Entresto 24 1 tab PO BID 12/26/19 01/26/20 Unknown History mg-26 mg Tablet] - History of Present Illness-Resp Nature of Presenting Problem: Patient is a 74 yom who presents with SOB x 2 days. Also reports some chest pain. Diaphoretic in respiratory distress on arrival. Review of Systems - Adult - REVIEW OF SYSTEMS - ADULT Constitutional: reports: no symptoms reported Eyes: reports: no symptoms reported Ears, Nose, Mouth & Throat: reports: no symptoms reported Cardiovascular: reports: see HPI Respiratory: reports: see HPI Gastrointestinal: reports: no symptoms reported Genitourinary: reports: no symptoms reported Musculoskeletal: reports: no symptoms reported Integumentary: reports: no symptoms reported Neurological: reports: no symptoms reported Psychiatric: reports: no symptoms reported Endocrine: reports: no symptoms reported Hematologic/Lymphatic: reports: no symptoms reported Allergic/Immunologic: reports: no symptoms reported All Other Systems: Reviewed and Negative Past History - Adult - PAST MEDICAL HISTORY-ADULT Review of Records: reports: Old Records Reviewed, Nursing Assessment Review, Medications Reviewed Cardiovascular: reports: denies history, A-Fib, HTN, other (pu) - IMMUNIZATION STATUS Childhood Immunizations: See Nurse Assessment Flu Vaccine: See Nurse Assessment - SOCIAL HISTORY Smoking: non-smoker Physical Exam-General - PHYSICAL EXAM-ADULT Initial Vital Signs Reviewed: Yes - CONSTITUTIONAL General Appearance: alert, severe distress. negative: lethargic, slow to respond - EYES Eyes: PERRL/EOMI - HEAD, EARS, NOSE, MOUTH & THROAT HENMT: normocephalic/atraumatic, moist mucous membranes - NECK Neck: full range of motion, supple, normal inspection - RESPIRATORY Respiratory: respiratory distress, accessory muscle use, crackles (bilateral lung bases), rhonchi (diffuse), retractions, increased rate, other (abdominal retractions/accessory muscle use noted) - CARDIOVASCULAR Cardiovascular: normal peripheral pulses, tachycardia - GASTROINTESTINAL (ABDOMEN) Abdominal Exam: normal bowel sounds, soft - MUSCULOSKELETAL Extremity: normal range of motion, normal inspection - SKIN Integumentary: diaphoresis. negative: mottled - NEUROLOGIC Neurologic: grossly normal - PSYCHIATRIC Psych/Mental Status: normal mood/affect, normal thought content, normal thought process, oriented x 3, anxious Progress - PLAN OF CARE/RESULTS Progress/Plan/Lab Results: Vital Signs - 8 hr 01/26/20 17:07 01/26/20 17:25 01/26/20 17:30 Temperature 99.7 F H Pulse Rate 122 H 122 H Respiratory Rate 30 H 32 H Blood Pressure 229/141 O2 Sat by Pulse Oximetry 90 L 95 97 01/26/20 18:18 01/26/20 18:55 Temperature 97.8 F Pulse Rate 79 81 Respiratory Rate 28 H 28 H Blood Pressure 174/93 172/78 O2 Sat by Pulse Oximetry 100 100 Laboratory Results - last 24 hr 01/26/20 01/26/20 01/26/20 17:18 17:30 17:36 WBC 11.56 H RBC 4.58 L Hgb 13.6 L Hct 42.0 MCV 91.7 MCH 29.7 MCHC 32.4 L RDW Std Deviation 14.8 H Plt Count 348 MPV 10.2 Immature Gran % (Auto) 0.1 Neut % (Auto) 46.2 Lymph % (Auto) 44.7 [place] % (Auto) 7.0 Eos % (Auto) 1.7 Baso % (Auto) 0.3 Immature Gran # (Auto) 0.01 Neut # (Auto) 5.33 Lymph # (Auto) 5.17 H [place] # (Auto) 0.81 H Eos # (Auto) 0.20 Baso # (Auto) 0.04 PT INR PTT (Actin FS) Specimen Type ARTERIAL Sample Site R BRACHIAL pH 7.32 L pCO2 37 pO2 85 HCO3 19.8 L Base Excess -6.4 L Oxyhemoglobin 94.3 L ABG O2 Sat (Calculated) 18.5 ABG O2 Saturation 97.5 ABG Carboxyhemoglobin 2.30 ABG Methemoglobin 1.0 Dann Test YES A-a O2 Difference 68.0 Total Hemoglobin 13.9 Lactate 2.90 H Liter Flow 2.0 Blood Gas Modality CANNULA FiO2 % 28.0 Sodium 142 Potassium 5.0 Chloride 107 Carbon Dioxide 19 L Anion Gap 16 BUN 34 H Creatinine 1.8 H Estimated GFR/1.73 m2 37 BUN/Creatinine Ratio 19 Glucose 206 H Calculated Osmolality 297 Calcium 9.3 Magnesium 2.1 Total Bilirubin 0.40 AST 39 H ALT 22 Alkaline Phosphatase 157 H Creatine Kinase 89 Troponin T High Sens Zln-K-Pwyseukxwpt Pept Total Protein 7.2 Albumin 3.5 Globulin 4.0 Albumin/Globulin Ratio 1.0 Plasma Lactate Urine Source Urine Color Urine Turbidity Urine pH Ur Specific [place] Urine Protein Ur Glucose (Stick) Ur Ketones (Stick) Urine Blood Urine Nitrite Urine Bilirubin Urobilinogen Dipstick Urine Leukocytes Urine WBC (Auto) Urine RBC (Auto) U Epithel Cells (Auto) Urine Bacteria (Auto) Urine Crystals Small Round Cells Urine Casts Urine Yeast-like Cells 01/26/20 01/26/20 01/26/20 17:36 17:36 17:36 WBC RBC Hgb Hct MCV MCH MCHC RDW Std Deviation Plt Count MPV Immature Gran % (Auto) Neut % (Auto) Lymph % (Auto) [place] % (Auto) Eos % (Auto) Baso % (Auto) Immature Gran # (Auto) Neut # (Auto) Lymph # (Auto) [place] # (Auto) Eos # (Auto) Baso # (Auto) PT 14.5 INR 1.07 PTT (Actin FS) 30.0 Specimen Type Sample Site pH pCO2 pO2 HCO3 Base Excess Oxyhemoglobin ABG O2 Sat (Calculated) ABG O2 Saturation ABG Carboxyhemoglobin ABG Methemoglobin Dann Test A-a O2 Difference Total Hemoglobin Lactate Liter Flow Blood Gas Modality FiO2 % Sodium Potassium Chloride Carbon Dioxide Anion Gap BUN Creatinine Estimated GFR/1.73 m2 BUN/Creatinine Ratio Glucose Calculated Osmolality Calcium Magnesium Total Bilirubin AST ALT Alkaline Phosphatase Creatine Kinase Troponin T High Sens 32 H Mgg-P-Exkkjltfuup Pept Total Protein Albumin Globulin Albumin/Globulin Ratio Plasma Lactate 3.5 H Urine Source Urine Color Urine Turbidity Urine pH Ur Specific [place] Urine Protein Ur Glucose (Stick) Ur Ketones (Stick) Urine Blood Urine Nitrite Urine Bilirubin Urobilinogen Dipstick Urine Leukocytes Urine WBC (Auto) Urine RBC (Auto) U Epithel Cells (Auto) Urine Bacteria (Auto) Urine Crystals Small Round Cells Urine Casts Urine Yeast-like Cells 01/26/20 01/26/20 17:36 18:10 WBC RBC Hgb Hct MCV MCH MCHC RDW Std Deviation Plt Count MPV Immature Gran % (Auto) Neut % (Auto) Lymph % (Auto) [place] % (Auto) Eos % (Auto) Baso % (Auto) Immature Gran # (Auto) Neut # (Auto) Lymph # (Auto) [place] # (Auto) Eos # (Auto) Baso # (Auto) PT INR PTT (Actin FS) Specimen Type Sample Site pH pCO2 pO2 HCO3 Base Excess Oxyhemoglobin ABG O2 Sat (Calculated) ABG O2 Saturation ABG Carboxyhemoglobin ABG Methemoglobin Dann Test A-a O2 Difference Total Hemoglobin Lactate Liter Flow Blood Gas Modality FiO2 % Sodium Potassium Chloride Carbon Dioxide Anion Gap BUN Creatinine Estimated GFR/1.73 m2 BUN/Creatinine Ratio Glucose Calculated Osmolality Calcium Magnesium Total Bilirubin AST ALT Alkaline Phosphatase Creatine Kinase Troponin T High Sens Nor-L-Pwmkmirglvd Pept > 23111 H Total Protein Albumin Globulin Albumin/Globulin Ratio Plasma Lactate Urine Source CATH Urine Color ORANGE Urine Turbidity TURBID Urine pH 6.0 Ur Specific [place] 1.024 Urine Protein 600 A Ur Glucose (Stick) 70 A Ur Ketones (Stick) NEGATIVE Urine Blood LARGE A Urine Nitrite NEGATIVE Urine Bilirubin NEGATIVE Urobilinogen Dipstick NORMAL Urine Leukocytes MODERATE A Urine WBC (Auto) TNTC A Urine RBC (Auto) TNTC A U Epithel Cells (Auto) >10 A Urine Bacteria (Auto) NEGATIVE Urine Crystals NONE SEEN Small Round Cells TRANS PRESENT Urine Casts NONE SEEN Urine Yeast-like Cells NONE SEEN Orders Category Date Time Status Admit - [facility] Routine AdmDCTranf 01/26/20 19:02 Active Apply Mechanical Device [QM] ORDERED Care 01/26/20 18:15 Active Call Admitting on Arrival AT ADMISSION Care 01/26/20 19:03 Active Cardiac Monitoring NOW Care 01/26/20 17:20 Active DVT/PE Risk Assess/Protocol [QM] ORDERED Care 01/26/20 18:15 Active Fonseca Cath Insertion ORDERED Care 01/26/20 17:46 Active IV Insertion NOW Care 01/26/20 17:20 Completed Intake and Output-Strict ORDERED Care 01/26/20 18:15 Active Isolation [Isolation Precautions Setup] NOW Care 01/26/20 17:29 Active NEWS Score >or=5:Order NEWS Bundle S.O. NOW Care 01/26/20 17:09 Active Notify Physician ORDERED Care 01/26/20 18:15 Active Notify Physician if: ORDERED Care 01/26/20 18:15 Active Notify Provider of NEWS Score NOW Care 01/26/20 17:20 Active Resuscitation Status Routine Care 01/26/20 19:02 Ordered Saline Loc NOW Care 01/26/20 17:20 Active Vital Signs Order Q30M Care 01/26/20 18:15 Active NPO Diet 01/26/20 19:03 Active CHEST-PORTABLE [RAD] Stat Exams 01/26/20 17:20 Completed ABG [RESP] Routine Lab 01/26/20 17:18 Completed BLOOD CULTURE [BLDCUL] Stat Lab 01/26/20 17:42 Ordered BNP [PRO B-NATRIURETIC PEPTIDE] Stat Lab 01/26/20 17:36 Completed CBC WITH DIFF [HEME] Stat Lab 01/26/20 17:30 Completed CK PROFILE [SP CHEM] Stat Lab 01/26/20 17:36 Completed COMPREHENSIVE METABOLIC PANEL [CHEM] Stat Lab 01/26/20 17:36 Completed LACTATE, PLASMA [CHEM] Lab 01/26/20 20:30 Uncollected LACTATE, PLASMA [CHEM] Lab 01/26/20 23:30 Uncollected LACTATE, PLASMA [CHEM] Q3H Lab 01/26/20 17:36 Completed MAGNESIUM [CHEM] Stat Lab 01/26/20 17:36 Completed MISCELLANEOUS TEST-LAB [RF] Stat Lab 01/26/20 18:53 Uncollected PROTIME WITH INR [COAG] Stat Lab 01/26/20 17:36 Completed PTT [COAG] Stat Lab 01/26/20 17:36 Completed TROPONIN T HIGH SENSITIVITY Stat Lab 01/26/20 17:36 Completed URINALYSIS W/POSS RFLX CULT [URINALYSIS] Stat Lab 01/26/20 18:10 Completed URINE CULTURE [RM] Routine Lab 01/26/20 18:43 Ordered URINE MANUAL MICROSCOPIC [URINALYSIS] Stat Lab 01/26/20 18:10 Completed 0.9% Sodium Chloride Inj [Ns] 1,000 ml Med 01/26/20 18:39 Active IV 999 mls/hr 0.9% Sodium Chloride Inj [Ns] 1,000 ml Med 01/26/20 18:43 Active IV 999 mls/hr Acetaminophen [Tylenol] Med 01/26/20 19:02 Active 650 mg PO Q6H PRN PRN Albuterol Sulfate Inhaler [Ventolin Hfa] Med 01/26/20 17:10 Discontinued 4 puff INH NOW ONE CefTRIAXONE [Rocephin] 1 gm Med 01/26/20 17:48 Discontinued 0.9% Sodium Chloride Inj [Ns] 50 ml IV NOW Furosemide [Lasix] Med 01/26/20 17:22 Discontinued 40 mg IV NOW ONE Furosemide [Lasix] Med 01/26/20 18:43 Discontinued 40 mg IV NOW ONE Hydralazine [Apresoline] Med 01/26/20 17:22 Discontinued 10 mg IV NOW ONE Nitroglycerin Med 01/26/20 17:55 Discontinued 1 inch TOP NOW ONE Ondansetron [Zofran] Med 01/26/20 19:02 Active 4 mg IV Q6H PRN PRN MDI Treatments Stat Oth 01/26/20 17:10 Completed O2 Per Protocol Stat Oth 01/26/20 17:20 Completed Oxygen Device Routine Oth 01/26/20 19:03 Active Pulse Oximetry Stat Oth 01/26/20 17:20 Active EKG [EKG] Stat Ther 01/26/20 18:31 Ordered Transfer/Admit Order [TRANSFER] Routine Transfer 01/26/20 19:04 Ordered Result Diagrams: 01/26/20 17:30 01/26/20 17:36 - REASSESSMENT Reassessment #1 Time Reassessed: 18:55 Status: other (Discussed case with JESSICA Davey EMBROIDERER HAND at - states she will make Dr. Horne aware of impending transfer.) - EKG 1 Time of EKG reading by physician:: 17:18 EKG Read and Signed by:: Christopher Arboleda EKG Interpretation (*Must complete 3 of following elements*): Abnormal Rate: 107 Rhythm: Atrial fibrillation QRS: Q Waves present (V1,V2), PVC's ST Wave: non-specific ST changes - XRAY 1 XRAY Study: Chest ([facility] - [address] [facility] [address] [place] [id number] [facility] - [address] [place] [address] Department of Imaging Patient: AGNES VILLALOBOS Date: 01/26/20#: [id number] : 1945DM Status: PRE ERAcct#: [id number] Age/Sex: 74/MRoom/Bed: Loc: P.ED Ordering Physician: Aye Ray Family Physician: Cosme Shah MD Reason for Procedure: respiratory distress Signed EXAM: CHEST-PORTABLE 01/26/2020 HISTORY: respiratory distress TECHNIQUE: AP portable at 1736 COMMENT: There is a fairly large right pleural effusion and apparent smaller effusion on the left. There is ill-defined opacity in both lung bases and on the right this is largely due to compressive atelectasis of the right lower lobe and middle lobe. There was some opacity in the right lower lobe at the time the previous study of 12/04/2019. The ill-defined opacity over the left base is certainly worse. IMPRESSION: Worsened pulmonary edema and/or pneumonia with increasing pleural effusions particularly on the right. Electronically signed by Jerald Woodson 01/26/2020 5:47 PM 01/26/201746 Interpreting Physician: Jerald Woodson MD Dictated Date/Time: 01/26/201745 cc: Aye Ray; Cosme Shah MD) - CONSULTS/PCP/HOSPITALIST Notification #1 *Consult/PCP/Hospitalist*: Dr. Delong Time Discussed: 18:26 Reason/Comments: admit-CAP vs. CHF, SOB, sepsis Consult Disposition: Admit (to (ICU), Dr. Delong to consult with admitting HPS at .) Departure - Departure Date of Disposition Decision: 01/26/20 Time of Disposition Decision: 18:27 DIAGNOSIS: Pleural effusion, Renal insufficiency, Respiratory distress, acute CHF exacerbation Qualifiers: Heart failure type: unspecified Qualified Code(s): I50.9 - Heart failure, unspecified Hypertension Qualifiers: Hypertension type: unspecified Qualified Code(s): I10 - Essential (primary) hypertension CAP (community acquired pneumonia) Qualifiers: Laterality: unspecified laterality Qualified Code(s): J18.9 - Pneumonia, unspecified organism UTI (urinary tract infection) Qualifiers: Urinary tract infection type: site unspecified Hematuria presence: with hematuria Qualified Code(s): N39.0 - Urinary tract infection, site not specified Sepsis Qualifiers: Sepsis type: sepsis due to unspecified organism Sepsis acute organ dysfunction status: unspecified Qualified Code(s): A41.9 - Sepsis, unspecified organism Disposition: ADMITTED INPATIENT 09 Certified Medical Emergency: Emergent Condition: Serious Referrals and Follow-Ups: Cosme Shah MD [Primary Care Provider] - - Critical Care Note This patient required my direct & personal management of CC.: No Attestation - Physician/ BEATA Attestation Patient care was provided by Advanced Practice Provider:: Yes Advanced Practice Provider:: Aye Ray Advanced Practice Provider documentation review:: The Mid-level provider documentation, treatment plan and medical decision making was reviewed by the physician who agrees with all treatment and medical decision making by the MLP. The physician spent face to face time with patient:: Yes (Dr. Arboleda) Advanced Practice Provider documentation review:: Supervising physician onsite and consulted in the evaluation and care of this patient. The physician did have a face to face encounter with the patient. Sepsis: Tissue Perfusion Assmt - Physical Exam Assessment Date: 01/26/20 Time Assessment Initialized: 19:19 Vital Signs: Last Vital Signs Temp 97.8 F 01/26/20 18:55 Pulse 81 01/26/20 18:55 Resp 28 H 01/26/20 18:55 BP 172/78 01/26/20 18:55 Pulse Ox 100 01/26/20 18:55 Height 5 ft 4 in Weight 130 lb Lung Sounds: crackles, rhonchi Heart Sounds: Irregular Capillary Refill Time: Less Than 2 Seconds Peripheral Pulse Evaluation: radial (R): 3+, radial (L): 3+ Skin Exam: pink - Alternative Fluid Bolus Is patient's BMI >30?: No Fluid Bolus dosed using the Paper [place] Body Weight Chart: Yes Patient's [place] Body Weight: 59.2 (kg) - Impression Impression: Tissue Perfusion Adequate - Plan Plan: See Orders
[2020-01-26 17:33] LABS: BE -6.4 mmoll (-3.0-3.0); BLOOD TYPE ARTERIAL; HCO3-(ACT) 19.8 mmoll (20.0-26.0); O2(CT) 18.5 mL/dL (15.0-23.0); O2HB 94.3 % (95.0-99.0); PCO2(98.6) 37 mmHg (35-45); PO2(98.6) 85 mmHg (60-100); SAMPLE BLOOD; SAO2 97.5 % (95.0-100.0); THB 13.9 g/dL (11.5-17.4); pH(98.6) 7.32 (7.35-7.45)
[2020-01-26 17:43] LABS: BASO# 0.04 X1000 (0.0-0.2); BASO% 0.3 % (0.0-0.8); EOS% 1.7 % (0.0-10.0); HEMOGLOBIN 13.6 g/dL (14.0-18.0); IMM GRAN# 0.01 X1000 (0.0-0.04); IMM GRAN% 0.1 % (0.0-0.5); LYMPH# 5.17 X1000 (1.2-3.4); LYMPH% 44.7 % (20.5-51.1); MCH 29.7 PG (27-31); MCHC 32.4 g/dL (33-37); MCV 91.7 FL (81-99); MONO# 0.81 X1000 (0.11-0.59); MPV 10.2 FL (7.4-10.4); NEUT# 5.33 X1000 (1.4-6.5); NEUT% 46.2 % (42.2-75.2); PLT 348 X1000 (130-400); RBC 4.58 XMIL (4.7-6.1); RDW 14.8 % (11.5-14.5); WBC 11.56 X1000 (4.8-10.8)
[2020-01-26] MEDS ORDERED: ROCEPHIN 1 GM in NS 50 ML IV ONE (17:48)
--- NOTE | 2020-01-26 17:49 | Diag Imaging Result Doc PS360 ---
EXAM: CHEST-PORTABLE 01/26/2020 HISTORY: respiratory distress TECHNIQUE: AP portable at 1736 COMMENT: There is a fairly large right pleural effusion and apparent smaller effusion on the left. There is ill-defined opacity in both lung bases and on the right this is largely due to compressive atelectasis of the right lower lobe and middle lobe. There was some opacity in the right lower lobe at the time the previous study of 12/04/2019. The ill-defined opacity over the left base is certainly worse. IMPRESSION: Worsened pulmonary edema and/or pneumonia with increasing pleural effusions particularly on the right. Electronically signed by Jerald Woodson 01/26/2020 5:47 PM
[2020-01-26] MEDS ORDERED: NITROGLYCERIN TOP ONE (17:55)
[2020-01-26 18:08] LABS: ALBUMIN 3.5 g/dL (3.5-5.0); CALCIUM 9.3 mg/dL (8.8-10.2); CREATININE 1.8 mg/dL (0.7-1.2); MAGNESIUM 2.1 mg/dL (1.5-2.7); TOTAL BILIRUBIN 0.4 mg/dL (0.20-1.00); TOTAL PROTEIN 7.2 g/dL (6.3-8.3)
[2020-01-26 18:09] LABS: ALLEN TEST YES; MODALITY CANNULA
[2020-01-26 18:20] LABS: URINE SOURCE CATH
[2020-01-26 18:22] LABS: INR 1.07; PROTIME 14.5 Seconds (11.0-16.0)
[2020-01-26 18:27] LABS: BILIRUBIN URINE NEGATIVE (NEGATIVE); BLOOD URINE LARGE (NEGATIVE); COLOR ORANGE; GLUCOSE URINE 70 mg/dL (NEGATIVE); KETONE URINE NEGATIVE (NEGATIVE); LEUKOCYTES URINE MODERATE (NEGATIVE); NITRITE URINE NEGATIVE (NEGATIVE); PROTEIN URINE 600 mg/dL (NEGATIVE); SP GRAVITY URINE 1.024; TURBIDITY URINE TURBID (CLEAR); UROBILINOGEN URINE NORMAL (NORMAL)
[2020-01-26 18:29] LABS: UR EPITHELIAL CELLS >10 /HPF (<10); URINE BACTERIA NEGATIVE /HPF; URINE RBC TNTC /HPF (<10); URINE WBC TNTC /HPF (<10)
[2020-01-26] MEDS ORDERED: NS 1,000 ML IV ONE ×2 (18:39→18:43)
[2020-01-26 18:42] LABS: URINE CASTS NONE SEEN; URINE CRYSTALS NONE SEEN; URINE YEAST NONE SEEN
[2020-01-26 18:43] LABS: URINE SMALL ROUND CELLS TRANS PRESENT
[2020-01-26] MEDS ORDERED: ZOFRAN IV PRN (19:02)
[2020-01-26] MEDS ORDERED: TYLENOL PO PRN (19:02)
[2020-01-26 20:06] LABS: INFLUENZA A NEGATIVE (NEGATIVE); INFLUENZA B NEGATIVE (NEGATIVE)
[2020-01-27] MEDS ORDERED: APRESOLINE IV ONE (00:01)
[2020-01-27] MEDS ORDERED: LEVAQUIN PO ONE (00:38)
[2020-01-27] MEDS ORDERED: ULTRAM PO PRN (00:39)
[2020-01-27] MEDS ORDERED: NITROGLYCERIN SL PRN (00:39)
[2020-01-27] MEDS ORDERED: LASIX IV ONE (00:42)
[2020-01-27] MEDS: ENTRESTO 24 MG-26 MG TABLET PO SCH ×2 (08:47→21:07)
[2020-01-27] MEDS: ARICEPT PO SCH (08:47)
[2020-01-27] MEDS: NORVASC PO SCH (08:47)
[2020-01-27] MEDS: ELIQUIS PO SCH ×2 (08:47→21:07)
[2020-01-27] MEDS: LEXAPRO PO SCH (08:48)
[2020-01-27] MEDS: LIPITOR PO SCH (08:48)
[2020-01-27] MEDS: ASPIRIN PO SCH (08:48)
[2020-01-27] MEDS ORDERED: TOPROL XL PO SCH (09:00)
[2020-01-27] MEDS ORDERED: MIRALAX PO SCH (09:00)
[2020-01-27] MEDS ORDERED: COREG PO SCH (09:00)
[2020-01-27] MEDS: LASIX IV SCH (11:24)
--- NOTE | 2020-01-27 11:35 | EKG Report ---
Test Performed on : 01/27/2020 11:23:23 AM Test Reason : POSS NSTEMI Blood Pressure : / mmHG Vent. Rate : 068 BPM Atrial Rate : 052 BPM P-R Int : 000 ms QRS Dur : 088 ms QT Int : 456 ms P-R-T Axes : 000 016 134 degrees QTc Int : 484 ms Atrial fibrillation. with premature ventricular or aberrantly conducted complexes. Septal infarct (cited on or before 05-AUG-2018) ST & T wave abnormality, consider lateral ischemia Abnormal ECG When compared with ECG of 26-JAN-2020 17:17, (Unconfirmed) Previous ECG has undetermined rhythm, needs review Nonspecific T wave abnormality has replaced inverted T waves in Inferior leads Confirmed by Annelise LAURENT, Dann Chapman ([id number]) on 01/27/2020 4:48:49 PM
[2020-01-27 12:17] LABS: CALCIUM 9.1 mg/dL (8.8-10.2); CREATININE 1.7 mg/dL (0.7-1.2); POTASSIUM 4.1 mmol/L (3.5-5.1)
--- NOTE | 2020-01-27 14:06 | PROGRESS NOTE ---
DATE: 01/27/2020 INTERVAL HISTORY: I do not have a history and physical on this patient, so most of the history was obtained after talking to patient's family and some of the emergency room records. Apparently, the patient came from home because of shortness of breath which had been progressively worsening over the last several days. He did not have chest pain. He was not coughing. He did not have fever or sick contacts, as per my discussion with the patient's daughter and granddaughter on the phone. SUBJECTIVE: I used [employer] machine operator service to talk with Mr. Mehta. He complains of shortness of breath. However, he states yes to all the complaints including chest pain, palpitations, vomiting, though the history is limited. VITALS: Currently, temperature 97 degrees, pulse 74, respiratory rate 14, blood pressure 150/100, he is saturating 96% on room air. PHYSICAL EXAMINATION: Mr. Mehta does not appear in acute distress. Oral cavity is moist. He had decreased air entry in the right inframammary and infra-axillary region with inspiratory crackles. Adequate air entry on left hemithorax, though he does have crackles in the left base, though less prominent than on the right. Cardiovascular: S1, S2 normal. Irregularly irregular. No murmur, rub, or gallop. Abdomen: Soft, nontender. He has bilateral lower extremity edema. He has a urine catheter. He is alert and he could tell me his name and date. He could tell that this was a hospital but he was not entirely oriented with the situation, as per my evaluation through the [employer] operator services. LABS: No CBC today. BMP has a potassium of 4.1, his BUN is 35, creatinine 1.7, his glucose is 251. His lactate on presentation was 3.5 which improved to 2.1. His proBNP was more than 35,000. His troponins are pending. He has pyuria. Urine culture is currently in the lab. ASSESSMENT AND PLAN: 1. Acute systolic congestive heart failure with ejection fraction of 25 to 30 percent. Electrocardiogram did not have acute ST changes. His initial troponin was slightly elevated. I will trend troponins. Start patient on intravenous Lasix. Follow up input and output closely. 2. Acute hypoxic respiratory failure: Due to acute pulmonary edema and predominantly right sided pleural effusion. Management as above. Continue oxygen. 2. Suspected history of coronary artery disease based on risk factors of age, essential hypertension, and peripheral arterial disease. On previous admission, he had refused to undergo coronary angiography (12/05) and it was decided to manage him medically. I will continue home aspirin, high-dose atorvastatin, beta blockers, Entresto.I n the future, consider adding spironolactone. 3. History of chronic atrial fibrillation and atrial fibrillation with rapid ventricular response on admission. Currently, his rate is well controlled. Continue home apixaban and Metoprolol. I will up-titrate Metoprolol since he is hypertensive. 4. History of insulin-dependent diabetes mellitus. Continue glargine and frequent blood glucose checks. 5. History of Dementia with behavioral disturbance. The patient, unfortunately, had rapid cognitive decline after his 's last year. Continue home Donepezil. 6. Disposition. I will continue to monitor the patient in the hospital. However, he appears hemodynamically stable and we will transfer him to PVC unit. I called the patient's daughter and granddaughter, and talked with them on the phone and got relevant historical data. I updated them about patient's clinical condition including heart failure and answered all of their questions. Apparently, patient has been at home since discharge from rehab a month ago and has not had any sick contacts, had not had any fever or cough, or recent exposure to someone with coronavirus, though his Covid-19 test was sent out, the results of which are pending. Thirty-five minutes of critical care time were spent in taking of this patient. cc: MD VANESA Rosado
[2020-01-27] MEDS ORDERED: LOPRESSOR PO ONE (18:00)
[2020-01-27] MEDS: HUMALOG SUBQ SCH (18:23)
[2020-01-27] MEDS: LANTUS INSULIN SUBQ SCH (21:07)
[2020-01-27] MEDS: LEVAQUIN PO SCH (21:07)
[2020-01-28] MEDS: LASIX IV SCH ×3 (00:22→22:15)
[2020-01-28 05:34] LABS: BASO# 0.02 X1000 (0.0-0.2); BASO% 0.3 % (0.0-0.8); EOS% 3.1 % (0.0-10.0); HEMATOCRIT 41.7 % (42.0-52.0); HEMOGLOBIN 13.5 g/dL (14.0-18.0); LYMPH# 1.45 X1000 (1.2-3.4); LYMPH% 22.5 % (20.5-51.1); MCH 29.3 PG (27-31); MCHC 32.4 g/dL (33-37); MCV 90.7 FL (81-99); MONO# 0.68 X1000 (0.11-0.59); MONO% 10.5 % (1.7-9.3); MPV 10.2 FL (7.4-10.4); NEUT% 63.6 % (42.2-75.2); PLT 271 X1000 (130-400); RDW 14.7 % (11.5-14.5); WBC 6.45 X1000 (4.8-10.8)
[2020-01-28 06:04] LABS: CALCIUM 9.1 mg/dL (8.8-10.2); CREATININE 1.7 mg/dL (0.7-1.2); POTASSIUM 3.9 mmol/L (3.5-5.1)
--- NOTE | 2020-01-28 07:14 | HISTORY AND PHYSICAL ---
CHIEF COMPLAINT: Shortness of breath. HISTORY OF PRESENT ILLNESS: This is a 74-year-old male who comes into the [facility] with shortness of breath x2. Also had some vague complaints of chest pain. He was diaphoretic on arrival to the emergency room, however, he had extremely increased work of breathing. He was tachypneic with a rate in the 30s. Tachycardic with a heart rate of 122. Chest x-ray obtained showed increased pulmonary vascular congestion with pleural effusions, the worst being on the right side. He was given Lasix in the emergency room. He denied any type of cough, fever, chills. He has not been around sick contacts, has not had travel recently. He did state that he has had some nausea and vomiting but really denied any other symptoms other than heart failure. He is Citizen [place] speaking so the wave solder offbearer service may have limited some of the history. He was transferred to [facility] for admission. On my examination he did not appear to be in any acute distress. He was sitting up comfortably. Respirations were in normal range. He was not having any accessory muscle use or increased work of breathing. He will be monitored in the ICU overnight for further evaluation and treatment. PAST MEDICAL HISTORY: CHF, A-fib, diabetes mellitus type 2, chronic kidney disease and dementia. PREVIOUS SURGICAL HISTORY: Right BKA, prostate surgery. SOCIAL HISTORY: Former tobacco use. No current tobacco use. No alcohol. No illicit drugs. FAMILY HISTORY: Positive for diabetes. ALLERGIES: No known drug allergies. HOME MEDICATIONS: Norvasc 5 mg p.o. daily, Eliquis 5 mg p.o. b.i.d., aspirin 81 mg p.o. daily, atorvastatin 40 mg p.o. daily, carvedilol 6.25 mg p.o. daily, Aricept 5 mg p.o. daily, Lexapro 10 mg p.o. daily, Lantus 10 units subcutaneously nightly, metoprolol 50 mg p.o. daily, nitroglycerin 0.3 mg sublingual p.r.n., MiraLAX 17 g p.o. daily, Entresto 24/26 mg one p.o. b.i.d., Ultram 50 mg p.o. q.8 p.r.n. REVIEW OF SYSTEMS: Fourteen-point review of systems conducted with the patient. Pertinent positive listed above in the HPI. All other systems are reviewed and found to be negative. PHYSICAL EXAMINATION: VITAL SIGNS: Temperature 97.2, pulse 78, respirations 23, blood pressure 177/103, oxygen saturation 100% on 40% Ventimask. GENERAL: Pleasant 74-year-old speaking male lying in the ICU bed. He is oriented to person. He does understand that he is in the hospital. He is disoriented to situation and time. HEENT: Head is atraumatic, normocephalic. Pupils equal, round, reactive to light. Extraocular eye movement is intact. Sclera is anicteric. Conjunctiva is pink. Oral mucosa is moist. NECK: Supple. No JVD. No thyromegaly. Trachea is midline. No cervical lymphadenopathy. CARDIAC: S1, S2 irregularly irregular. No murmurs, gallops, rubs. LUNGS: Decreased bilateral bases. Crepitations noted throughout bilateral air whitt, decreased air movement on the right is greater than the left. Symmetric rise and fall with respirations. ABDOMEN: Soft, nondistended, nontender. Bowel sounds present all 4 quadrants, normoactive. No pulsatile mass. No organomegaly. EXTREMITIES: No clubbing, cyanosis, 1+ lower extremity edema and 2+ pedal pulses. GENITOURINARY: Fonseca catheter in place. It is draining clear yellow urine. NEUROLOGICAL: He is alert and oriented to person, somewhat to place. Disoriented to situation and time. No focal motor deficits. Otherwise nonfocal examination. DIAGNOSTIC DATA: Chest x-ray shows increased pulmonary vascular congestion with bilateral effusions, right being greater than the left. LABORATORY DATA: WBC 11.56. Hemoglobin 13.6. Hematocrit 42. Platelet count 348. ABG: pH 7.32, CO2 of 37, bicarbonate 19.8, PO2 of 85. This was on 2 L nasal cannula. Sodium 142. Potassium 5. Chloride 107. Carbon dioxide 19. BUN 34. Creatinine 1.8. Glucose 206. ProBNP greater than 35,000. Urine: Leukocyte esterase positive, too numerous to count WBCs. This is also a compromised sample with greater than 10 epithelial cells. ASSESSMENT: 1. Congestive heart failure with exacerbation. 2. Questionable right lower lobe pneumonia. 3. Atrial fibrillation with chronic anticoagulation, rate controlled. 4. Hypertension. 5. Possible urinary tract infection. 6. Diabetes mellitus type 2 with hyperglycemia. 7. Acute hypoxic respiratory failure secondary to number 1. 8. History of dementia. PLAN: Admit patient to ICU. Continue Lasix. Strict Is and Os. The patient continues to be hypertensive. Continue his home antihypertensives. The patient's breathing has improved since receiving Lasix. Will give an additional dose as he did receive some fluids in the emergency room. Will continue his metoprolol for rate control for his atrial fibrillation. Continue Eliquis. Sliding scale insulin. Fingerstick blood sugars. Continue long-acting insulin. Check a hemoglobin A1c. Will continue his donepezil. The patient was tested for COVID-19 in the emergency room. Will continue his isolation. I gave the patient a one-time dose of 500 mg Lasix p.o. Will continue Lasix 250 mg p.o. daily for possible right lower lobe pneumonia, however, I do not have a high suspicion for this. He also questionably has a urinary tract infection, however, the sample was compromised. Continue to monitor. Further recommendations per patient clinical course. Dictated by LASHAUN Powell for Hussain Horne MD cc: LASHAUN Powell
[2020-01-28] MEDS: HUMALOG SUBQ SCH ×3 (08:55→22:15)
[2020-01-28] MEDS: ENTRESTO 24 MG-26 MG TABLET PO SCH ×2 (09:00→22:15)
[2020-01-28] MEDS: ASPIRIN PO SCH (09:00)
[2020-01-28] MEDS: NORVASC PO SCH (09:00)
[2020-01-28] MEDS: LEVAQUIN PO SCH (09:00)
[2020-01-28] MEDS: LEXAPRO PO SCH (09:00)
[2020-01-28] MEDS: ARICEPT PO SCH (09:00)
[2020-01-28] MEDS: ELIQUIS PO SCH ×2 (09:00→22:15)
[2020-01-28] MEDS: LIPITOR PO SCH (09:00)
[2020-01-28] MEDS: TOPROL XL PO SCH (09:01)
[2020-01-28] MEDS: MIRALAX PO SCH (09:01)
--- NOTE | 2020-01-28 12:27 | EKG Report ---
Test Performed on : 01/26/2020 5:17:38 PM Test Reason : sob Blood Pressure : / mmHG Vent. Rate : 107 BPM Atrial Rate : 416 BPM P-R Int : 000 ms QRS Dur : 084 ms QT Int : 372 ms P-R-T Axes : 000 001 -80 degrees QTc Int : 496 ms Undetermined rhythm Septal infarct (cited on or before 05-AUG-2018) ST & T wave abnormality, consider inferior ischemia Abnormal ECG When compared with ECG of 05-DEC-2019 15:34, Current undetermined rhythm precludes rhythm comparison, needs review Questionable change in QRS axis T wave inversion more evident in Lateral leads Unconfirmed Result
--- NOTE | 2020-01-28 15:58 | PROGRESS NOTE ---
DATE: 01/28/2020 SUBJECTIVE: I have seen and examined Mr. Mehta today. He refers to be doing much better. Breathing is getting better. Currently on 4 L of supplemental oxygen, saturating 97%. OBJECTIVELY: General: Mr. Mehta is a 74-year-old male. He is in bed, no distress. HEENT: Mucosa is pink and moist. Anicteric. Acyanotic. Neck: Supple. No JVD. Chest: Air entry is bilaterally reduced, some crackles posteriorly. Cardiovascular: Irregularly irregular. No murmurs. Abdomen: Soft. Extremities: There is trace of pedal edema on the left. Right has a BKA. Genital: A Fonseca catheter is also in place. CONDUIT MECHANIC: Patient is awake, alert, and oriented. LABORATORY DATA: WBC is down to 6.45, hemoglobin is 13.5, platelet count of 271,000. Chemistry is also reviewed. Creatinine of 1.7. So far, blood culture and urine culture have been negative. Urine output 2950 in 24 hours. CURRENT MEDICATIONS: Have all been reviewed. No changes. IMAGING STUDIES: Chest x-ray on admission did show worsening pulmonary edema and/or pneumonia with increased pleural effusion particularly on the right. ASSESSMENT: 1. Acute hypoxemic respiratory failure secondary to pulmonary edema/pulmonary pleural effusions. 2. Acute on chronic congestive heart failure with systolic dysfunction, ejection fraction of 25% to 30%. 3. Chronic atrial fibrillation. The patient was in rapid ventricular response on admission, is currently rate controlled. 4. Diabetes mellitus, insulin dependent. 5. History of dementia with behavioral disturbances. 6. Chronic kidney disease stage 3. PLAN: For now we are going to continue with the IV diuretics. The patient is on metoprolol and Entresto. We will continue to monitor and give further recommendations during the hospital course. We are still pending COVID testing on Mr. Mehta. cc: Devon Cortez MD
[2020-01-28] MEDS: LANTUS INSULIN SUBQ SCH (22:16)
[2020-01-29] MEDS ORDERED: B & O 15A SUPP PR ONE (01:37)
[2020-01-29 02:06] LABS: URINE SOURCE CATH
[2020-01-29 02:13] LABS: UR EPITHELIAL CELLS <10 /HPF (<10); URINE BACTERIA NEGATIVE /HPF; URINE RBC TNTC /HPF (<10); URINE WBC 20-40 /HPF (<10)
[2020-01-29 02:19] LABS: BILIRUBIN URINE NEGATIVE (NEGATIVE); BLOOD URINE LARGE (NEGATIVE); COLOR BROWN; GLUCOSE URINE NEGATIVE (NEGATIVE); KETONE URINE NEGATIVE (NEGATIVE); LEUKOCYTES URINE SMALL (NEGATIVE); NITRITE URINE NEGATIVE (NEGATIVE); PROTEIN URINE 100 mg/dL (NEGATIVE); SP GRAVITY URINE 1.013; TURBIDITY URINE TURBID (CLEAR); UROBILINOGEN URINE NORMAL (NORMAL)
[2020-01-29 05:56] LABS: HEMOGLOBIN 15.2 g/dL (14.0-18.0); MCH 29.9 PG (27-31); MCHC 32.3 g/dL (33-37); MCV 92.3 FL (81-99); MPV 11.1 FL (7.4-10.4); RBC 5.09 XMIL (4.7-6.1); RDW 14.9 % (11.5-14.5); WBC 7.94 X1000 (4.8-10.8)
--- NOTE | 2020-01-29 07:12 | Diag Imaging Result Doc PS360 ---
CHEST-PORTABLE - 01/29/2020 INDICATION: dyspnea COMPARISON: 01/26/2020 FINDINGS: Stable small to moderate right pleural effusion and trace left pleural effusion. Stable right perihilar infiltrate. No new infiltrates. Heart size remains normal. IMPRESSION: No change from prior. Electronically signed by Chris Joseph 01/29/2020 7:09 AM
[2020-01-29] MEDS: MIRALAX PO SCH (09:34)
[2020-01-29] MEDS: ENTRESTO 24 MG-26 MG TABLET PO SCH ×2 (09:35→20:39)
[2020-01-29] MEDS: LEVAQUIN PO SCH (09:35)
[2020-01-29] MEDS: ARICEPT PO SCH (09:35)
[2020-01-29] MEDS: LIPITOR PO SCH (09:35)
[2020-01-29] MEDS: NORVASC PO SCH (09:35)
[2020-01-29] MEDS: ASPIRIN PO SCH (09:35)
[2020-01-29] MEDS: ELIQUIS PO SCH ×2 (09:35→20:39)
[2020-01-29] MEDS: TOPROL XL PO SCH (09:35)
[2020-01-29] MEDS: LEXAPRO PO SCH (09:35)
[2020-01-29] MEDS: HUMALOG SUBQ SCH ×3 (09:43→17:38)
[2020-01-29 09:47] LABS: AGAP 15; ALB/GLOB RATIO 0.7; ALBUMIN 2.6 g/dL (3.5-5.0); ALKALINE PHOSPHATASE 108 U/L (32-122); BUN 41 mg/dL (8-22); CALCIUM 9.3 mg/dL (8.8-10.2); CHLORIDE 102 mmol/L (98-107); COSMO 291; CREATININE 1.9 mg/dL (0.7-1.2); GLUCOSE 118 mg/dL (70-104); GOT 34 U/L (10-34); GPT 11 U/L (10-44); PHOSPHORUS 4.8 mg/dL (2.7-4.5); SODIUM 140 mmol/L (136-145); TCO2 23 mmol/L (25-35); TOTAL BILIRUBIN 0.39 mg/dL (0.20-1.00); TOTAL PROTEIN 6.2 g/dL (6.3-8.3)
--- NOTE | 2020-01-29 10:39 | PROGRESS NOTE ---
DATE: 01/29/2020 SUBJECTIVE: I have seen and examined Mr. Mehta today. Mr. Mehta refers to be feeling a lot better. He thinks his shortness of breath has significantly improved. OBJECTIVE: Vital signs: Blood pressure is 117/74, pulse of 54, respirations 15, temperature is 97.7 degrees. General exam: Mr. Mehta is a 74-year-old male. He is in bed in no distress. HEENT: Mucosa is pink and moist. Anicteric. Acyanotic. Neck: Supple. No JVD this morning. Respiratory System: Air entry is bilaterally reduced. Some faint crackles in the posterior lung whitt. Cardiovascular System: Regular rate and rhythm with occasional extrasystolic beats. No murmurs. GI/Abdomen: Soft. Bowel sounds present. No hepatosplenomegaly. Extremities: Left lower extremity has mild trace of edema. Right lower extremity has a BKA. Fonseca catheter is still in place. Central nervous system: Patient is awake, alert, oriented. There is no focal deficit. LABS: The patient's input/output: Urine output was 545. He is currently negative balance of 3887 during the hospital course. WBC is 7.94, hemoglobin of 15.2, platelet count of 303. Chemistry is also reviewed. Creatinine is up to 1.9. IMAGING STUDIES: Chest x-ray continues to show stable [id number] right pleural effusion and trace left pleural effusion. Stable right perihilar infiltrate. No new infiltrates. CURRENT MEDICATIONS: Have all been reviewed. I have switched the patient's Lasix to p.o. ASSESSMENT: 1. Acute hypoxemic respiratory failure secondary to pulmonary edema, pleural effusion, and suspicion of possible pneumonia. 2. Acute on chronic congestive heart failure with systolic dysfunction, ejection fraction of 25% to 30%. The patient is currently on Entresto beta josefina. 3. Diabetes mellitus, insulin dependent. We will continue with the regimen. 4. Chronic atrial fibrillation, currently rate controlled. Patient is on a beta josefina, and also Eliquis for stroke prophylaxis. 5. Chronic kidney disease, stage III-A. 6. History of dementia with behavioral disturbances. 7. Status post right bilateral knee amputations noted. PLAN: So, in general, I think Mr. Mehta is doing a lot better. He is saturating 100% on 4 liters. We are going to continue to titrate this down, discontinue the Fonseca catheter. Patient is currently negative fluid balance, and he does not look overly congested. We will get physical therapy to start working with him. Continue with his current management, and re-evaluate him in the morning. cc: Devon Cortez MD
[2020-01-29] MEDS: LANTUS INSULIN SUBQ SCH (20:38)
[2020-01-29] MEDS ORDERED: LASIX PO SCH (21:00)
[2020-01-30 06:26] LABS: ALBUMIN 2.3 g/dL (3.5-5.0); CALCIUM 8.8 mg/dL (8.8-10.2); CREATININE 2.1 mg/dL (0.7-1.2); PHOSPHORUS 4.6 mg/dL (2.7-4.5); POTASSIUM 4.3 mmol/L (3.5-5.1)
--- NOTE | 2020-01-30 07:23 | Diag Imaging Result Doc PS360 ---
EXAM: CHEST-PORTABLE 01/30/2020 HISTORY: CHF TECHNIQUE: AP portable at 0706 COMMENT: Compared to 01/29/2020 the volume of pleural fluid quickly on the right appears to have diminished. There is still interstitial pulmonary edema and atelectatic changes are present in the right middle and both lower lobes. IMPRESSION: Improved pleural effusions. Electronically signed by Jerald Woodson 01/30/2020 7:21 AM
--- NOTE | 2020-01-30 09:02 | PROGRESS NOTE ---
DATE: 01/30/2020 SUBJECTIVE: I have seen and examined Mr. Mehta today. Mr. Mehta refers to be doing a lot better. No new complaints. He said his breathing has significantly improved. He is saturating 98% on 2 L. OBJECTIVE: Current vitals: Blood pressure 112/63, pulse of 54, respiration is 17, temperature is 97.6 degrees. General exam: Mr. Mehta is a 74-year-old gentleman. He was in bed in no distress. HEENT: Mucosa is pink and moist. Anicteric. Acyanotic. Neck: Supple. I did not see any JVD this morning. Respiratory system: There is good air entry bilateral. A few distant crackles in the posterior lung whitt. Cardiovascular: Regular rate and rhythm. Occasional extrasystolic beats. No murmurs. GI/abdomen: Soft, nontender. Bowel sounds present. No hepatosplenomegaly. Extremities: Just trace ankle edema on the left. Right lower extremity has a BKA. Fonseca catheter has been removed. PATHOLOGY LABORATORY AIDE: Patient is awake, alert, oriented. The patient's ins and outs: Urine output was 600. He is currently negative balance over 3000. IMAGING STUDIES: This morning, a chest x-ray shows improved pleural effusions. LABORATORY DATA: Creatinine is up to 2.1, albumin of 2.3. The patient's pro-B is also down to 6877. ASSESSMENT: 1. Acute hypoxemic respiratory failure on presentation secondary to pulmonary edema, pleural effusion, and suspicion of a possible pneumonia. The patient is now down to just 2 liters of supplemental oxygen. Follow-up chest x-ray this morning shows remarkable improvement. 2. Acute on chronic congestive heart failure with systolic dysfunction, ejection fraction of 25% to 30%. The patient continues to be on Entresto, beta josefina and diuretic therapy. 3. Diabetes mellitus, insulin dependent. We will continue with the regimen. 4. Chronic atrial fibrillation, currently rate controlled. 5. Chronic kidney disease, stage III-A with acute kidney injury. I think probably patient has been over diuresed. We will stop the diuretic therapy today. His albumin is also low, so I will give him some albumin today and just observe. 6. History of dementia. 7. Status post right below-knee amputation. PLAN: So, in general, I think Mr. Mehta is doing well. We will request physical therapy to evaluate him again today. I have changed his diuretic therapy because of the acute renal issues, and we will get him some albumin too. We anticipate a possible discharge for Mr. Mehta tomorrow. cc: Devon Cortez MD I have discussed patient updates and plan for possible discharge with her daughter. VANESA
[2020-01-30] MEDS: ALBUMIN 25% IV SCH (09:35)
[2020-01-30] MEDS: LIPITOR PO SCH (09:36)
[2020-01-30] MEDS: ENTRESTO 24 MG-26 MG TABLET PO SCH ×2 (09:36→21:36)
[2020-01-30] MEDS: TOPROL XL PO SCH (09:36)
[2020-01-30] MEDS: NORVASC PO SCH (09:36)
[2020-01-30] MEDS: MIRALAX PO SCH (09:36)
[2020-01-30] MEDS: LEXAPRO PO SCH (09:36)
[2020-01-30] MEDS: LEVAQUIN PO SCH (09:36)
[2020-01-30] MEDS: ARICEPT PO SCH (09:36)
[2020-01-30] MEDS: ASPIRIN PO SCH (09:37)
[2020-01-30] MEDS: ELIQUIS PO SCH ×2 (09:37→21:36)
[2020-01-30] MEDS: HUMALOG SUBQ SCH ×3 (09:37→18:16)
[2020-01-30] MEDS: LANTUS INSULIN SUBQ SCH (21:36)
[2020-01-31 06:26] LABS: ALBUMIN 2.8 g/dL (3.5-5.0); CREATININE 1.9 mg/dL (0.7-1.2); PHOSPHORUS 3.4 mg/dL (2.7-4.5); POTASSIUM 3.6 mmol/L (3.5-5.1)
[2020-01-31 07:40] VITALS: BP 132/72
[2020-01-31] MEDS ORDERED: LASIX PO SCH (09:00)
[2020-01-31] MEDS ORDERED: LOPRESSOR PO SCH (09:00)
[2020-01-31] MEDS: HUMALOG SUBQ SCH (10:00)
[2020-01-31] MEDS: MIRALAX PO SCH (10:03)
[2020-01-31] MEDS: ENTRESTO 24 MG-26 MG TABLET PO SCH (10:03)
[2020-01-31] MEDS: ARICEPT PO SCH (10:03)
[2020-01-31] MEDS: NORVASC PO SCH (10:03)
[2020-01-31] MEDS: ALBUMIN 25% IV SCH (10:04)
[2020-01-31] MEDS: ASPIRIN PO SCH (10:04)
[2020-01-31] MEDS: LEVAQUIN PO SCH (10:04)
[2020-01-31] MEDS: LIPITOR PO SCH (10:04)
[2020-01-31] MEDS: LEXAPRO PO SCH (10:04)
[2020-01-31] MEDS: ELIQUIS PO SCH (10:04)
--- NOTE | 2020-01-31 13:57 | DISCHARGE SUMMARY ---
ADMISSION DATE: 01/26/2020 DISCHARGE DATE: 01/31/2020 DISPOSITION: Home with home health. FOLLOW-UP: Dr. Shah. CONSULTATION DURING THIS ADMISSION: None. INVASIVE PROCEDURES DONE DURING ADMISSION: None. IMAGING STUDIES OF SIGNIFICANCE: A chest x-ray did show worsening pulmonary edema and/or pneumonia with increase in pleural effusion particularly on the right. Subsequent chest x-rays were done. A repeat was done yesterday which showed improved pleural effusions. ADMISSION DIAGNOSES: 1. Acute systolic heart failure. 2. Hypoxemic respiratory failure. 3. Suspected coronary artery disease. 4. Chronic atrial fibrillation. DIAGNOSES AT TIME OF DISCHARGE: 1. Acute hypoxemic respiratory failure on presentation secondary to pulmonary edema, pleural effusion, and suspicion of superimposed pneumonia. 2. Acute on chronic congestive heart failure with systolic dysfunction, ejection fraction of 25% to 30%. 3. Diabetes mellitus, insulin dependent. 4. Chronic atrial fibrillation. 5. Chronic kidney disease stage 3A with acute kidney injury. 6. History of dementia. 7. Status post right below knee amputation. DISCHARGE MEDICATIONS: 1. Lantus 10 units subcutaneous at bedtime. 2. Aspirin 81 mg p.o. daily. 3. Apixaban 5 mg b.i.d. 4. Lexapro 10 mg p.o. daily. 5. Metoprolol 50 mg p.o. daily. 6. Amlodipine 5 mg p.o. daily. 7. Atorvastatin 40 mg p.o. daily. 8. Donepezil 5 mg p.o. daily. 9. Entresto 1 tablet b.i.d. 10. Furosemide 20 mg p.o. daily. 11. Levaquin 50 mg p.o. daily. PRESENTING COMPLAINT: Shortness of breath. HISTORY OF PRESENT COMPLAINT: Mr. Mehta is a 74-year-old male who presented to [facility] because of shortness of breath. He was found to be in extreme increase of work up breathing, tachycardic with a heart rate of 122 and respiratory rate of 30s. X-ray found pulmonary edema, cardiomegaly, and possible superimposed pneumonia. He was transferred to [facility] for higher level of care. HOSPITAL COURSE: Mr. Mehta was admitted to [facility], and started on IV diuretic therapy, and antibiotics. He was initially isolated because of concern of COVID-19 disease which came back negative. Mr. Mehta responded very well to diuretic therapy. At the time of discharge, he was 2795- balance. He had also lost about 17 pounds of weight during the hospital course. Mr. Mehta was also started on IV antibiotics. White cell count which was 11.56 on admission had come down to 7.95 prior to discharge. He has been afebrile throughout the hospital course. He feels a whole lot better. His vitals have been stabilized. He has been evaluated by physical therapy during the hospital course. At this point, we think Mr. Mehta is euvolemic and stable enough to be discharged. Of note, his troponins were just minimally elevated. His pro-B which was more than 35,000 on admission, decreased to 6877 at the time of discharge. All the discharge instructions have been discussed with him. He voiced understanding. I also spoke extensively with the daughter the day prior to admission and updated her about Mr. Mehta's current condition, and the decision to discharge him today. She did voice an understanding, and all her questions and concerns were addressed. TIME SPENT FOR DISCHARGE: 38 minutes. cc: Devon oCrtez MD
== END 2020-01-31 12:28 | disposition home health service (06) | DRG 291 ==
LOC: P.ED 17:03 → ICU 21:42 → SUATTDRO 21:42 → 2N 01-27 15:00
PROVIDERS: ATTEND Internal Medicine